=== PATIENT | female | born 1960 | race Caucasian/White ===

== ENCOUNTER → 2018-03-15 | Day surgery (SDC) | payer OTHER ==
[~2018-03-15] MED LIST: BUPIVACAINE HCL 0.5% INJ 30 ML VIAL INJ ONE; CEFAZOLIN SOD 1 GM VIAL ONE; CYMBALTA20 MG PO; DEXAMETHASONE SOD PHOS INJ 4 MG/ML VIAL ONE; FENTANYL CITRATE/PF 100MCG/2 ML INJ ONE; KETOROLAC TROMETHAMINE 30 MG/ML VIAL ONE; LIDOCAINE HCL 2% LOCAL INJ 5 ML SDV VIAL INJ ONE; MIDAZOLAM HCL 2 MG/2 ML VIAL ONE; ONDANSETRON HCL INJ 2 MG/ML VIAL ONE; PROPOFOL IV EMULSION 10 MG/ML 20 ML VIAL ONE; SEVOFLURANE INHAL SOLN 250 ML PEN BTL ONE
--- OUTSIDE RECORDS SUMMARY | 2018-03-15 06:32 | XMS REPORT | Clinical Summary ---
Author Author MARTH[facility] Address Unknown Phone Unavailable Care Team Providers Care Monument Installer Name Role Phone PCP Unavailable Allergies No Known Allergies Current Medications Prescription Sig. Disp. Refills Start End Date Status Date DULoxetine (CYMBALTA) 20 Take 20 mg by mouth Active MG capsule daily. ibuprofen (ADVIL,MOTRIN) Take 200 mg by mouth Active 200 MG tablet every 6 (six) hours as needed for Pain. aspirin 325 MG EC tablet Take 1 tablet (325 mg 30 tablet 0 04/20/20 04/20/20 total) by mouth daily. 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 Social History Tobacco Use Types Packs/Day Years Used Date Never Smoker Alcohol Use Drinks/Week oz/Week Comments Yes 1 Glasses of 0.6 seldom wine Sex Assigned at Date Recorded Not on file Last Filed Vital Signs Not on file Plan of Treatment Not on file Implants Implanted Type Area Librarian Head Device Expiration Model / Identifier Date Serial / Lot Mcpherson Mini Bio Suttak 2.4x8.5 Mcpherson/Art Right: ARTHREX 02/07/2018 [id number] - [id number] hroscopy Ankle F / Implanted: Qty: 2 on 04/20/2016 by / Mark Tavares MD [id number] [facility] May Repr Intrl Brace Mcpherson/Art Right: ARTHREX 02/07/2018 AR-1688-CP Ar-1688-Cp - [id number] hroscopy Ankle / Implanted: Qty: 1 on 04/20/2016 by / Mark Tavares MD [id number] [facility] Ar-[id number] - [id number] Mcpherson/Art Right: Toe ARTHREX AR-[id number] Implanted: Qty: 1 on 04/20/2016 by hroscopy / Mark Tavares MD / [id number] Scr Quick Fix 2x13mm Ar-[id number] - Fracture/F Right: Toe ARTHREX AR- 8930-13 [id number] ixation / Implanted: Qty: 2 on 04/20/2016 by / Mark Tavares MD 0.62 K Wire Right: Toe ARTHREX [id number] / Implanted: Qty: 1 on 04/20/2016 by / Mark Tavares MD Results Not on fileafter 03/14/2017
--- NOTE | 2018-03-15 13:20 | Operative Report ---
DATE OF PROCEDURE: March 15, 2018 TRAUMA MANAGER: Logan Napier PA-C The patient was brought to the operating room for induction of anesthesia. Throughout this case, my PA's assistance was necessary for retraction of soft tissue and positioning of the extremity. This allows for efficient and technically successful execution of the operation and is considered medically necessary. PREOPERATIVE DIAGNOSIS: Left de Quervain's tenosynovitis. POSTOPERATIVE DIAGNOSIS: Left de Quervain's tenosynovitis. PROCEDURE: Release, left de Quervain's tenosynovitis. INDICATIONS: The patient is a 57-year-old lady with intractable left de Quervain's tenosynovitis. She has failed conservative management and would like to proceed with a release of the first dorsal compartment. The risks and benefits have been explained. The recovery has been discussed. She states she understands and wishes to proceed. DESCRIPTION OF PROCEDURE: The patient was brought into the operating room and placed under general anesthetic. Her left upper extremity was prepped and draped in a sterile manner. A preoperative time out was performed. Extremity was exsanguinated, and a proximal tourniquet was inflated to 250 mmHg. An incision was made over the radial styloid. Care was taken to avoid injury to the superficial branch of the radial nerve. The first dorsal compartment was exposed. This was released. There was indeed noted to be a separate compartment for the extensor pollicis brevis and the abductor pollicis longus. Both were released. The tendons were retracted from the wound. There were no further strictures. The incision was closed with 2 interrupted nylon stitches. She was placed in a sterile bandage and a thumb spica splint. She was extubated and transported to the recovery room in stable condition. There was no blood loss, and all needle and sponge counts were correct. Job#: [id number]
== END | disposition home or self-care (01) ==
LOC: OR 06:30
PROVIDERS: ATTEND Specialist
DX: M65.4 Radial styloid tenosynovitis [de Quervain] (principal); Z01.810 Encounter for preprocedural cardiovascular examination
CPT/HCPCS: 25000; 93005; J0690; J1100; J1885; J2001; J2250; J2405

== ENCOUNTER 2019-01-26 10:46 | Observation (INO) | payer OTHER ==
[~2019-01-26] VITALS: Ht 162.6 cm; Wt 64.4 kg
[~2019-01-26 10:46] MED LIST changes: -BUPIVACAINE HCL 0.5% INJ 30 ML VIAL INJ ONE; -CEFAZOLIN SOD 1 GM VIAL ONE; -DEXAMETHASONE SOD PHOS INJ 4 MG/ML VIAL ONE; -FENTANYL CITRATE/PF 100MCG/2 ML INJ ONE; -KETOROLAC TROMETHAMINE 30 MG/ML VIAL ONE; -LIDOCAINE HCL 2% LOCAL INJ 5 ML SDV VIAL INJ ONE; -MIDAZOLAM HCL 2 MG/2 ML VIAL ONE; -ONDANSETRON HCL INJ 2 MG/ML VIAL ONE; -PROPOFOL IV EMULSION 10 MG/ML 20 ML VIAL ONE; -SEVOFLURANE INHAL SOLN 250 ML PEN BTL ONE
--- OUTSIDE RECORDS SUMMARY | 2019-01-26 10:50 | XMS REPORT | Summary of Care ---
Author Author [facility] Organization [facility] Address Unknown Phone Unavailable Encounter HQ Carlos_maikel(FIN) [id number] Date(s): 09/07/17 - 09/07/17 [facility] [address] [place] [address]- Discharge Disposition: Home or Self Care Attending Physician: Rafa Mack MD Referring Physician: Rafa Mack MD Vital Signs No data available for this section Problem List Condition Effective Dates Status Health Status Informant Sebaceous cyst of 10/02/14 Active skin of breast1, 2 1Data migrated from [employer] on 03/12/15. 2Data migrated from [employer] on 03/12/15. Allergies, Adverse Reactions, Alerts Substance Reaction Severity Status NKDA Active Medications No data available for this section Results No data available for this section Immunizations No data available for this section Procedures Procedure Date Related Diagnosis Body Site Carpal tunnel release section1 1x2 Social History Social History Type Response Alcohol Current, Type Wine. Previous treatment: None. Smoking Status Never smoker; Exposure to Tobacco Smoke None; Cigarette Smoking Last 365 Days No; Reg Smoking Cessation Counseling No Assessment and Plan No data available for this section
--- OUTSIDE RECORDS SUMMARY | 2019-01-26 10:50 | XMS REPORT | Encounter Summary ---
Author Organization Unknown Address [address] [place] [address] Phone [phone] Care Team Providers Care Contour Stitcher Name Role Phone Murray Campbell DO 3 [phone] Reason for Visit Medical Complaint Instructions 1. Upper respiratory infection upper respiratory infection (cold): care instructions azithromycin 250 mg tablet methylprednisolone 4 mg tablets in a dose pack 2. Influenza-like symptoms rapid flu (A+B) 3. Pain in throat rapid strep group A, throat sore throat: care instructions 4. Ear pressure sensation Discussion Note Pt is in NAD; Verbalizes understanding of all instructions with no questions at this time. Plan of Care Patient Instructions Stop Sudafed. Take fluticasone over the counter as needed for nasal and ear congestion. Terril one spray in each nostril twice a day. Take a warm, steamy shower, blow your nose thereafter, and spray in each nostril. Tilt your head up for about 10 seconds and breath through your mouth. Do not sniff or snort the medication in or else the medication will go to your throat and not be absorbed appropriately. Take over the counter Xyzal for allergy like symptoms like runny nose, sneezing and watery eyes. Take steroid taper as directed and with food to avoid heartburn. If no improvement of symptoms in 3-4 days, start antobiotics as directed. Take medications as prescribed and follow up with a PCP or ENT within this if symptoms worsen as discussed. Reminders Provider Appointments None recorded. Lab Rapid Strep Group a, Throat 12/17/2017 [facility] Rapid Flu (A+B) 12/17/2017 [facility] Referral None recorded. Procedures None recorded. Surgeries None recorded. Imaging None recorded. Medications Name Start Date azithromycin 250 mg tablet TAKE 2 TABLETS (500 MG) BY ORAL ROUTE ONCE DAILY FOR 1 DAY THEN 1 TABLET (250 MG) BY ORAL ROUTE ONCE DAILY FOR 4 DAYS Boostrix Tdap 2.5 Lf unit-8 mcg-5 Lf/0.5 mL intramuscular syringe ADM 0.5ML IM UTD duloxetine 20 mg capsule,delayed release TK ONE C PO D Fluarix Quad [id number] (PF) 60 mcg (15 mcg x 4)/0.5 mL IM syringe ADM 0.5ML IM UTD methylprednisolone 4 mg tablets in a dose pack Take PO as directed Take with food. pantoprazole 40 mg tablet,delayed release TK 1 T PO QD Medications Administered None recorded. Vitals Height Weight BMI Blood Pressure 5 ft 4 in 130 lbs 22.3 kg/m2 115/72 mm[Hg] Lab Results Date Name Specimen Result Interpretation Description Value Range Status Address Rapid Flu (A+B) Influenza a negative [facility]: [address] [place] [address] Influenza B negative [facility]: [address] [place] [address] Rapid Strep Group a, Throat Result negative [facility]: [address] [place] [address] Swab Location Left and Right tonsillar pillars [facility]: [address] [place] [address] Allergies Code Code System Name Reaction Severity Status Onset NKDA Problems Name Status Onset Date Source Pain in Throat Active 12/17/2017 Upper Respiratory Infection Active 12/17/2017 Ear Pressure Sensation Active 12/17/2017 Menopausal Flushing Active Heartburn Active Procedures Date Name Performed by 08/11/2017 Cholecystectomy Information not available Delivery Information not available Vaccine List Vaccine Type influenza, seasonal, injectable 07/11/2011 07/11/2015 influenza, unspecified formulation 08/16/2017 Tdap 05/17/2017 Social History Smoking Status Never Smoker Past Encounters 12/17/2017 Upper Respiratory Infection; Influenza-like Symptoms; Pain in Throat; Ear Pressure Sensation Jocelyne Isaac, [facility]-C: [address] [place] [address], Ph. History of Present Illness Throat-Oral Complaint Reported By: Patient HPI: Location: throat. Quality: sore throat, congested. Severity: moderate, pain level 5/10. Duration: 3-4 days. Onset/Timing: sudden. Context: no sick contacts, no foreign travel, non-smoker; Pt reports she will leave the country and will be gone for almost a week. Modifying factors: OTC medication. Associated Symptoms: no fever, no headache, no body aches, no sputum production, no shortness of breath, no wheezing, no change in number of pillows needed to sleep at night, no sweats, no significant weight gain, no significant weight loss, no morning cough, no vomiting, no diarrhea, no rash, no nausea, fever, sore throat; sinus pressure, nasal congestion, rhinorrhea, post nasal drip, and right ear pressure Torlmgi-Pmqww-Lna Reported By: Patient HPI: Quality: symptoms worse during the day. Duration: 3-4 days. Severity: subjective temperature. Context: no ill contacts, no tick/insect bites, no recent travel, no new medications; Pt reports she will leave the country and will be gone for almost a week. Associated Symptoms: no fever/chills, no headache, no muscle aches, no rash, no lethargy, cough, nasal passage blockage (stuffiness), nasal discharge; sinus pressure, post nasal drip, sore throat, right ear pressure, and low grade fever. Modifying Factors OTC medication Ear Complaint Reported By: Patient HPI: Location: right. Quality: ears feel full/plugged, muffled. Severity: continuous, moderate. Duration: constant; x 3-4 days. Onset/Timing: better, still present, gradual. Context: no sick contacts, no recent swimming/water in ear, no exposure to second hand smoke, no head trauma, not grinding teeth, no recent air travel; Pt reports she will leave the country and will be gone for almost a week. Modifying factors: does not hurt to lie on, or pull on ear, does not hurt to chew, nothing gives relief. Associated Symptoms: no discharge from the ears, no hearing loss, no popping noise in the ears, no ringing in the ears, no chills, no earache, no dizziness, no vertigo, no headache, no muscle aches, nose/sinus problems, fever; rhinorrhea, post nasal drip, sore throat, and right ear pressure Note:
Review of Systems:ROS as noted in the HPI Review of Systems Basic Reported By: Patient Physical Exam Adult Basic, Adult Female Complete Reported By: Patient Constitutional: General Appearance: healthy-appearing, well-nourished, well-developed. Level of Distress: NAD. Ambulation: ambulating normally Psychiatric: Mental Status: active and alert. Orientation: to time, to place, to person Eyes: Lids and Conjunctivae: non-injected, no discharge, no pallor. Pupils: PERRLA Xaq-Cuof-Zcwtz-Throat: Ears: no lesions on external ear, no outer ear tenderness, EACs clear, TMs clear. Hearing: no hearing loss. Nose: no lesions on external nose, nares patent, no septal deviation, nasal passages clear, no sinus tenderness, nasal discharge--rhinorrhea, post nasal drip; B/L NTs pink and slightly edematous. Lips, Teeth, and Gums: no mouth or lip ulcers, no bleeding gums, normal dentition. Oropharynx: moist mucous membranes, no erythema, no exudates, tonsils not enlarged Neck: Neck: supple. Lymph Nodes: no cervical LAD Lungs: Respiratory effort: no dyspnea, no tachypnea, no use of accessory muscles, no intercostal retractions. Auscultation: breath sounds normal Cardiovascular: Heart Auscultation: RRR, no murmurs Neurologic: Gait and Station: normal gait, normal station. Cranial Nerves: grossly intact
--- OUTSIDE RECORDS SUMMARY | 2019-01-26 10:50 | XMS REPORT | Encounter Summary ---
Author Organization Unknown Address [address] [place] [address] Phone [phone] Care Team Providers Care Paper Final Inspector Name Role Phone Murray Campbell DO 3 [phone] Reason for Visit Medical Complaint Instructions 1. Acute sinusitis sinusitis: care instructions Augmentin 875 mg-125 mg tablet Bromfed DM 2 mg-30 mg-10 mg/5 mL syrup Discussion Note Take an zrao-ayx-rvartsc pain medicine, such as acetaminophen (Tylenol), ibuprofen (Advil, Motrin), or naproxen (Aleve). Read and follow all instructions on the label. If the doctor prescribed antibiotics, take them as directed. Do not stop taking them just because you feel better. You need to take the full course of antibiotics. Be careful when taking wrtj-azs-fzxxabp cold or flu medicines and Tylenol at the same time. Plan of Care Reminders Provider Appointments None recorded. Lab None recorded. Referral None recorded. Procedures None recorded. Surgeries None recorded. Imaging None recorded. Medications Name Start Date Augmentin 875 mg-125 mg tablet Take 1 tablet every 12 hours by oral route with meals for 10 days. Bromfed DM 2 mg-30 mg-10 mg/5 mL syrup Take 10 mL every 6 hours by oral route as needed for cough. duloxetine 20 mg capsule,delayed release TK ONE C PO D Medications Administered None recorded. Vitals Height Weight BMI Blood Pressure 5 ft 130 lbs 25.4 kg/m2 112/68 mm[Hg] Lab Results None recorded. Allergies Code Code System Name Reaction Severity [...] History Smoking Status Never Smoker Past Encounters 04/09/2018 Acute Sinusitis Tahira Payne PA-C: [address] [place] [address], Ph. History of Present Illness Hjatx-Xcexsxsnvg-Jwfljtm Reported By: Patient HPI: Location: head/sinuses, throat. Quality: sore throat, nasal/sinus congestion, dry cough. Duration: 7days. Severity: mild. Onset/Timing: gradual. Context: sick contact. Modifying factors: OTC medication. Associated Symptoms: no sputum production, no shortness of breath, no wheezing, no change in number of pillows needed to sleep at night, no sweats, no significant weight gain, no significant weight loss, no vomiting, no diarrhea, no rash, no nausea, no fever, no muscle aches, morning cough, sore throat, headache Review of Systems Basic Reported By: Patient Constitutional: Constitutional: no fever Eyes: Eyes: no eye complaints Xjjz-Phkd-Ayrgd-Throat: Ears: ear pain. Nose: nose/sinus problems. Mouth/Throat: no bleeding gums, no mouth complaints, no teeth problems, sore throat Cardiovascular: Cardiovascular: no chest pain, no shortness of breath, no known heart murmur Respiratory: Respiratory: no wheezing, no shortness of breath, cough Gastrointestinal: Gastrointestinal: no abdominal pain, no vomiting / diarrhea Genitourinary: Genitourinary: no urinary complaints, no discharge Musculoskeletal: Musculoskeletal: no muscle weakness, no arthralgias/joint pain, no back pain, muscle aches Skin: Skin: no abnormal / changing mole, no jaundice, no rashes Neurologic: Neurologic: no loss of consciousness, no weakness, no numbness, no seizures, no dizziness, no headaches, headache Physical Exam Adult Basic Reported By: Patient Constitutional: General Appearance: healthy-appearing, well-nourished, well-developed. Level of Distress: NAD. Ambulation: ambulating normally Psychiatric: Mental Status: active and alert. Orientation: to time, to place, to person Eyes: Lids and Conjunctivae: non-injected, no discharge, no pallor. Pupils: PERRLA. EOM: EOMI. Sclerae: non-icteric Kto-Xyge-Dytbm-Throat: Ears: no lesions on external ear, no outer ear tenderness, EACs clear, TM opacified, middle ear fluid. Hearing: no hearing loss. Nose: no lesions on external nose, nares patent, no septal deviation, nasal passages clear, sinus tenderness, nasal discharge--purulent, nasal discharge--rhinorrhea, post nasal drip. Lips, Teeth, and Gums: no mouth or lip ulcers, no bleeding gums, normal dentition. Oropharynx: moist mucous membranes, no exudates, tonsils not enlarged, erythema Neck: Neck: supple, trachea midline, no masses, FROM. Lymph Nodes: no cervical LAD, no supraclavicular LAD Lungs: Respiratory effort: no dyspnea, no tachypnea, no use of accessory muscles, no intercostal retractions. Percussion: no dullness, flatness, or hyperresonance. Auscultation: breath sounds normal Cardiovascular: Heart Auscultation: RRR, no murmurs
--- OUTSIDE RECORDS SUMMARY | 2019-01-26 10:50 | XMS REPORT | Summary of Care ---
Author Author [facility] Organization [facility] General [facility] Address Unknown Phone Unavailable Encounter HQ Sudhakarr_maikel(FIN) [id number] Date(s): 09/14/17 - 09/14/17 [facility] General [facility] [address] [facility] [address] [place] [address]- [phone] Discharge Disposition: Home or Self Care Attending Physician: Ezekiel Arroyo MD Referring Physician: Akhil Shrestha MD Vital Signs Most recent to 1 oldest [Reference Range]: Height 152.4 cm (09/14/17 3:03 PM) Temperature Oral 97.9 DegF [96.4-99.1 DegF] (09/14/17 3:03 PM) Blood Pressure 129/79 mmHg [90-140/60-90 mmHg] (09/14/17 3:03 PM) Peripheral Pulse 74 bpm Rate [60-100 bpm] (09/14/17 3:03 PM) Weight 64.801 kg (09/14/17 3:03 PM) Body Mass Index 27.9 m2 (09/14/17 3:03 PM) Problem List Condition Effective Dates Status Health Status Informant Sebaceous cyst of 10/02/14 Active skin of breast1, 2 1Data migrated from [employer] on 03/12/15. 2Data migrated from [employer] on 03/12/15. Allergies, Adverse Reactions, Alerts Substance Reaction Severity Status NKDA Active Medications No Known Medications Results No data available for this section Immunizations No data available for this section Procedures Procedure Date Related Diagnosis Body Site Laparoscopic cholecystectomy 08/27/17 Carpal tunnel release section1 1x2 Social History Social History Type Response Alcohol Current, Type Wine. Previous treatment: None. Smoking Status Never smoker; Exposure to Tobacco Smoke None; Cigarette Smoking Last 365 Days No; Reg Smoking Cessation Counseling No Assessment and Plan No data available for this section
--- OUTSIDE RECORDS SUMMARY | 2019-01-26 10:50 | XMS REPORT | Summary of Care ---
Author Organization Unknown Address Unknown Phone Unavailable Encounter HQ Encntr_alimiguel(LINN) [id number] Date(s): 04/27/14 - 04/27/14 [facility] [address] Discharge Disposition: Home Physician Attending: Rafa Mack MD Physician_Referring: Rafa Mack MD Reason for Visit SCREENING Problem List No data available for this section Allergies, Adverse Reactions, Alerts Substance Reaction Severity Status NKDA Active Medications No data available for this section Medications Administered During Your Visit No data available for this section Immunizations No data available for this section Social History Social History Type Response Alcohol Use: Current, Type: Wine, Previous treatment: None Smoking Status Never smoker, Exposure to Tobacco Smoke None, Cigarette Smoking Last 365 Days No, Reg Smoking Cessation Counseling No
--- OUTSIDE RECORDS SUMMARY | 2019-01-26 10:50 | XMS REPORT | Summary of Care ---
Author Author [facility] Organization [facility] Address Unknown Phone Unavailable Encounter MONICA Brooks(LINN) [id number] Date(s): 07/10/16 - 07/10/16 [facility] [address] [place] [address]- [phone] Discharge Disposition: Home or Self Care Attending Physician: Rafa Mack MD Referring Physician: Rafa Mack MD Vital Signs No data available for this section Problem List Condition Effective Dates Status Health Status Informant Sebaceous cyst of 10/02/14 Active skin of breast1, 2 1Data migrated from [employer] on 03/12/15. 2Data migrated from [employer] on 03/12/15. Allergies, Adverse Reactions, Alerts Substance [...]
--- OUTSIDE RECORDS SUMMARY | 2019-01-26 10:50 | XMS REPORT | Summary of Care ---
Author Organization Unknown Address Unknown Phone Unavailable Encounter HQ Todd(LINN) [id number] Date(s): 04/10/14 - 04/10/14 [facility] [address] [address] Discharge Disposition: Home Physician Attending: Rafa Mack MD Physician_Referring: Rafa Mack MD Reason for Visit 627.1 Vital Signs 1 2 3 Most recent to oldest [Reference Range]: 152.4 cm (04/09/14 11:32 AM) Height 98.1 DegF (04/10/14 11:14 AM) 97.6 DegF (04/09/14 11:50 AM) Temperature Oral [96.4-99.1 DegF] 130 mmHg (04/10/14 3:15 PM) 124 mmHg (04/10/14 3:00 PM) 121 mmHg (04/10/14 2:45 PM) Systolic Blood Pressure [90-140 mmHg] 76 mmHg (04/10/14 3:15 PM) 79 mmHg (04/10/14 3:00 PM) 97 mmHg *HI* (04/10/14 2:45 PM) Diastolic Blood Pressure [60-90 mmHg] 18 BRMIN (04/10/14 2:15 PM) 17 BRMIN (04/10/14 2:00 PM) 13 BRMIN *LOW* (04/10/14 1:45 PM) Respiratory Rate [14-20 BRMIN] 63 bpm (04/10/14 11:14 AM) 65 bpm (04/09/14 11:50 AM) Peripheral Pulse Rate [60-100 bpm] 57.727 kg (04/09/14 11:32 AM) Weight 24.85 m2 (04/09/14 11:32 AM) Body Mass Index Problem List No data available for this section Allergies, Adverse Reactions, Alerts Substance Reaction Severity Status NKDA Active Medications acetaminophen-hydrocodone 325 mg-5 mg oral tablet 1 tab, Route: PO, Drug Form: TAB, Dosing Weight 57.727, kg, Q4H, PRN Pain Score 1-3, Start date: 04/10/14 13:33:00, Duration: 30 day, Stop date: 05/10/14 13:32: 00 Notes: (Same as: [place] 325/5) Do not exceed 4gm/day of acetaminophen. Start Date: 04/10/14 Stop Date: 04/11/14 Status: Discontinued acetaminophen-hydrocodone 325 mg-5 mg oral tablet 2 tab, Route: PO, Drug Form: TAB, Dosing Weight 57.727, kg, Q4H, PRN Pain Score 4-6, Start date: 04/10/14 13:33:00, Duration: 30 day, Stop date: 05/10/14 13:32: 00 Notes: (Same as: [place] 325/5) Do not exceed 4gm/day of acetaminophen. Start Date: 04/10/14 Stop Date: 04/11/14 Status: Discontinued Advil 200 mg, PO, PRN, 0 Refill(s) Start Date: 04/09/14 Status: Ordered Effexor XR 37.5 mg oral capsule, extended release 37.5 mg=1 cap, PO, Daily, # 30 cap, 0 Refill(s) Start Date: 04/09/14 Status: Ordered Lactated Ringers Injection IV 1,000 mL 1,000 mL, Rate: 25 ml/hr, Infuse over: 40 hr, Route: IV, Dosing Weight 57.727 kg , Total Volume: 1,000, Start date: 04/10/14 10:52:00, Duration: 30 day, Stop wilma e: 05/10/14 10:51:00 Start Date: 04/10/14 Stop Date: 04/11/14 Status: Discontinued morphine Sulfate 2 mg, 1 mL, Route: IVP, Drug form: INJ, Q3H, Dosing Weight 57.727, kg, PRN Pain Score 1-3, Start date: 04/10/14 13:33:00, Duration: 30 day, Stop date: 05/10/14 13:32:00 Notes: (Same as:MORPhine Sulfate) Start Date: 04/10/14 Stop Date: 04/11/14 Status: Discontinued morphine Sulfate 6 mg, 3 mL, Route: IVP, Drug form: INJ, Q3H, Dosing Weight 57.727, kg, PRN Pain Score 7-10, Start date: 04/10/14 13:33:00, Duration: 30 day, Stop date: 05/10/14 13:32:00 Notes: (Same as:MORPhine Sulfate) Start Date: 04/10/14 Stop Date: 04/11/14 Status: Discontinued morphine Sulfate 4 mg, 2 mL, Route: IVP, Drug form: INJ, Q3H, Dosing Weight 57.727, kg, PRN Pain Score 4-6, Start date: 04/10/14 13:33:00, Duration: 30 day, Stop date: 05/10/14 13:32:00 Notes: (Same as:MORPhine Sulfate) Start Date: 04/10/14 Stop Date: 04/11/14 Status: Discontinued Results ENDOCRINOLOGY Most recent to 1 oldest [Reference Range]: S Preg [Negative] Negative *NA* (04/09/14 12:10 PM) Medications Administered During Your Visit No data available for this section Immunizations No data available for this section Procedures Procedure Type Body Site Date of Procedure Related Diagnosis Carpal tunnel release section1 1x2 Social History Social History Type Response Alcohol Use: Current, Type: Wine, Previous treatment: None Smoking Status Never smoker, Exposure to Tobacco Smoke None, Cigarette Smoking Last 365 Days No, Reg Smoking Cessation Counseling No
--- OUTSIDE RECORDS SUMMARY | 2019-01-26 10:50 | XMS REPORT | Clinical Summary ---
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 Active ibuprofen (ADVIL,MOTRIN) Take 200 mg 0 200 MG tablet by mouth every 6 (six) hours as needed for Pain. 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 Last Filed Vital Signs Not on file Plan of Treatment Not on file Implants Device Identifier Shelf Expiration Date Model / Serial / Lot Implanted Type Area Manufactur er 02/07/2018 [id number] / / [id number] [place] Mini Bio Suttak 2.4x8.5 [place] Right: Ankle ARTHREX [id number] - [id number] hroscopy Implanted: Qty: 2 on 04/20/2016 by Mark Tavares MD 02/07/2018 [id number] / / [id number] Kt Ligmnt May Repr Intrl Brace [place] Right: Ankle ARTHREX Ar-1688-Cp - [id number] hroscopy Implanted: Qty: 1 on 04/20/2016 by Mark Tavares MD 01/08/2021 [id number] / / [id number] Kt Cpr Viper Ar-[id number] - [id number] [place] Right: Toe ARTHREX Implanted: Qty: 1 on 04/20/2016 by Mark Venegas MD [id number] / / Scr Quick Fix 2x13mm Ar-8930-13 - Fracture/F Right: Toe ARTHREX [id number] ixation Implanted: Qty: 2 on 04/20/2016 by Mark Tavares MD [id number] / / 0.62 K Wire Right: Toe ARTHREX Implanted: Qty: 1 on 04/20/2016 by Mark Tavares MD Results Not on fileafter 01/25/2018 Insurance Payer Benefit Subscriber ID Type Phone Address Plan / Group AETNA - MGD CARE AETNA HMO xxxxxxxxxx HMO/POS POS QPOS Advance Directives For more information, please contact: [facility] [address] [place] [address] Date Inactivated Comments Code Status Date Activated 04/20/2016 2:19 PM Full Code 04/20/2016 6:42 AM This code status was determined by: Patient
--- OUTSIDE RECORDS SUMMARY | 2019-01-26 10:50 | XMS REPORT | Summary of Care ---
Author Author [facility] Organization [facility] Address Unknown Phone Unavailable Encounter MONICA Brooks(LINN) [id number] Date(s): 04/30/15 - 04/30/15 [facility] [address] [place] [address]- Discharge Disposition: Home Attending Physician: Rafa Mack MD Referring Physician: [...]
--- OUTSIDE RECORDS SUMMARY | 2019-01-26 10:50 | XMS REPORT | Continuity of Care Document ---
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 Name Role Phone MD Coty, Xavier PP Unavailable Insurance Providers Payer name Policy type / Coverage type Policy ID Covered green party ID Policy Thorne AETNA - CHOICE (POS II) AETNA - CHOICE (POS II) Encounters Encounter Performer Location Date Lab Report Xavier Ansari MD [facility] [place] Oct 03, 2014 Vital Signs Date Description Test Result Oct 02, 2014 height E&M - 8302-2 HEIGHT 60 in Oct 02, 2014 weight E&M - 3141-9 WEIGHT 132 lb Oct 02, 2014 temperature E&M TEMPERATURE 97.5 deg f Oct 02, 2014 pulse rate E&M - 8867-4 PULSE RATE 65 /min Oct 02, 2014 blood pressure, systolic - 8480-6 BP SYSTOLIC 110 mm Hg Oct 02, 2014 blood pressure, diastolic - 8462-4 BP DIASTOLIC 71 mm Hg
--- OUTSIDE RECORDS SUMMARY | 2019-01-26 10:50 | XMS REPORT | Encounter Summary ---
Author Organization Unknown Address [address] [place] [id number] Phone [phone] Reason for Visit Medical Complaint; fever,body aches, sore throat,laryngitis,headache,coughx 3 days Instructions 1. Influenza with non-respiratory manifestation rapid flu (A+B) rapid strep group A, throat Tamiflu 75 mg capsule influenza (flu): care instructions Bromfed DM 2 mg-30 mg-10 mg/5 mL syrup Discussion Note: None recorded. Plan of Care Patient Instructions Please drink plenty of fluids, rest, good hand washing, cover your mouth while coughing and sneezing. Take ibuprofen or tylenol every 6 hours as needed for fever and aches. Follow up with PCP or seek care if symptoms doesn't getworse or no improvement in 1 week. Reminders Provider Appointments None recorded. Lab Rapid Flu (A+B) 02/03/2016 [facility] Rapid Strep Group a, Throat 02/03/2016 [facility] Referral None recorded. Procedures None recorded. Surgeries None recorded. Imaging None recorded. Medications Name Start Date Bromfed DM 2 mg-30 mg-10 mg/5 mL syrup Take 10 mL every 6 hours by oral route as needed for cough. Tamiflu 75 mg capsule Take 1 capsule(s) twice a day by oral route for 5 days. venlafaxine ER 37.5 mg capsule,extended release 24 hr Medications Administered None recorded. Vitals Height Weight BMI Blood Pressure 5 ft 126 lbs 24.6 (1) 140/90 (2) 134/78 Lab Results Date Name Result Description Value Range Status Rapid Flu (A+B) Influenza a negative Influenza B positive Rapid Strep Group a, Throat Result negative Swab Location Left and Right tonsillar pillars Allergies Name Reaction Severity Onset NKDA Problems Name Status Onset Date Source Acute Sinusitis Active Encounter Acute Upper Respiratory Infection Active Encounter Allergic Rhinitis Active Encounter Influenza with Non-respiratory Manifestation Active Encounter Procedures Date Name Performed by Delivery Information not available Vaccine List Vaccine Type influenza, seasonal, injectable 07/10/2011 07/10/2015 Social History Smoking Status Never Smoker Past Encounters 02/03/2016 Influenza with Non-respiratory Manifestation Jennie Nevarez, [facility]: [address] [place] [address], Ph. History of Present Illness [id number] Reported By: Patient HPI: Location: head/sinuses, throat. Quality: sore throat, dry cough. Duration: 3days. Severity: moderate. Onset/Timing: gradual. Context: no foreign travel, non-smoker, sick contact. Modifying factors: OTC medication. Associated Symptoms: no sputum production, no shortness of breath, no wheezing, no change in number of pillows needed to sleep at night, no sweats, no significant weight gain, no significant weight loss, no morning cough, no vomiting, no diarrhea, no rash, no nausea, fatigue, sore throat Review of Systems Basic Reported By: Patient Constitutional: Constitutional: fever Eyes: Eyes: no eye complaints Egjm-Lsli-Fpncc-Throat: Ears: no ear complaints. Nose: nose/sinus problems. Mouth/Throat: no bleeding gums, no mouth complaints, no teeth problems, sore throat Cardiovascular: Cardiovascular: no chest pain, no shortness of breath, no known heart murmur Respiratory: Respiratory: no wheezing, no shortness of breath, cough Gastrointestinal: Gastrointestinal: no abdominal pain, no vomiting / diarrhea Genitourinary: Genitourinary: no urinary complaints, no discharge Musculoskeletal: Musculoskeletal: no arthralgias/joint pain, no back pain, muscle aches Skin: Skin: no abnormal / changing mole, no jaundice, no rashes Neurologic: Neurologic: no loss of consciousness, no weakness, no numbness, no seizures, no dizziness, no headaches Physical Exam Adult Female Complete, Adult Basic Constitutional: General Appearance: healthy-appearing, well-nourished, well-developed. Level of Distress: NAD. Ambulation: ambulating normally Psychiatric: Mental Status: active and alert. Orientation: to time, to place, to person Eyes: Lids and Conjunctivae: non-injected, no discharge, no pallor. Pupils: PERRLA. EOM: EOMI. Lens: clear. Sclerae: non-icteric Hum-Dnmo-Ljqgd-Throat: Ears: no lesions on external ear, no outer ear tenderness, EACs clear, TMs clear. Hearing: no hearing loss. Nose: no lesions on external nose, nares patent, no septal deviation, nasal passages clear, no sinus tenderness, nasal discharge--rhinorrhea, post nasal drip. Lips, Teeth, and Gums: no mouth or lip ulcers, no bleeding gums, normal dentition. Oropharynx: moist mucous membranes, no exudates, tonsils not enlarged, erythema Neck: Neck: supple. Lymph Nodes: no cervical LAD, no supraclavicular LAD Lungs: Respiratory effort: no dyspnea, no tachypnea. Auscultation: breath sounds normal Cardiovascular: Heart Auscultation: RRR, no murmurs Musculoskeletal:: Motor Strength and Tone: normal motor strength, normal tone Neurologic: Gait and Station: normal gait Skin: Inspection and palpation: no rash, no lesions
--- OUTSIDE RECORDS SUMMARY | 2019-01-26 10:50 | XMS REPORT | Continuity of Care Document ---
Author Author [facility] Address Unknown Phone Unavailable Problems Problem Status Onset Date Classification Date Reported Comments Source ONLINE SCHEDLING Active 10/10/2018 [facility] Acute sinusitis 04/09/2018 Diagnosis 04/09/2018 [facility] Influenza-like symptoms 12/17/2017 Diagnosis 12/17/2017 [facility] Ear pressure sensation 12/17/2017 Diagnosis 12/17/2017 [facility] Pain in throat 12/17/2017 Diagnosis 12/17/2017 [facility] Upper respiratory infection 12/17/2017 Diagnosis 12/17/2017 [facility] Pain in Throat 12/17/2017 Problem 04/09/2018 [facility] Upper Respiratory Infection 12/17/2017 Problem 04/09/2018 [facility] Ear Pressure Sensation 12/17/2017 Problem 04/09/2018 [facility] Z12.31 - ENCNTR SCREEN MAMMOGRAM FOR MA Active 08/02/2017 [facility] [place] SCREENING Active 08/02/2017 [facility] ROUTINE Active 06/09/2016 [facility] Influenza with non-respiratory manifestation 02/03/2016 Diagnosis 02/03/2016 [facility] Sebaceous cyst of skin of breast<sup>1, 2</sup> Active 10/02/2014 Problem 09/17/2017 Data migrated from [employer] on 03/12/15. 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 04/05/2014 [facility] SCREENINGN Active 03/22/2013 [facility] Menopausal Flushing Problem 04/09/2018 [facility] Heartburn Problem 04/09/2018 [facility] Acute Sinusitis Problem 02/03/2016 [facility] Acute Upper Respiratory Infection Problem 02/03/2016 [facility] Allergic Rhinitis Problem 02/03/2016 [facility] Influenza with Non-respiratory Manifestation Problem 02/03/2016 [facility] Medications Medication Details Route Status Patient Instructions Ordering Provider Order Date Source Acetaminophen 325 MG / Hydrocodone Bitartrate 5 MG Oral Tablet 1 tab, Route: PO, Drug Form: TAB, Dosing Weight 57.727, kg, Q4H, PRN Pain Score 1-3, Start date: 04/10/14 13:33:00, Duration: 30 day, Stop date: 05/10/14 13:32:00Notes: (Same as: [place] 325/5) Do not exceed 4gm/day of acetaminophen. No Longer Active 04/10/2014 [facility] Morphine 2 mg, 1 mL, Route: IVP, Drug form: INJ, Q3H, Dosing Weight 57.727, kg, PRN Pain Score 1-3, Start date: 04/10/14 13:33:00, Duration: 30 day, Stop date: 05/10/14 13:32:00Notes: (Same as:[facility]OR[facility]ine Sulfate) No Longer Active 04/10/2014 [facility] Calcium Chloride 0.0014 MEQ/ML / Potassium Chloride 0.004 MEQ/ML / Sodium Chloride 0.103 MEQ/ML / Sodium Lactate 0.028 MEQ/ML Injectable Solution 1,000 mL, Rate: 25 ml/hr, Infuse over: 40 hr, Route: IV, Dosing Weight 57.727 kg, Total Volume: 1,000, Start date: 04/10/14 10:52:00, Duration: 30 day, Stop date: 05/10/14 10:51:00 No Longer Active 04/10/2014 [facility] 24 HR venlafaxine 37.5 MG Extended Release Capsule [Effexor] 37.5 mg=1 cap, PO, Daily, # 30 cap, 0 Refill(s) Active 04/09/2014 [facility] Advil 200 mg, PO, PRN, 0 Refill(s) Active 04/09/2014 [facility] Amoxicillin 875 MG / Clavulanate 125 MG Oral Tablet [Augmentin] Augmentin 875 mg-125 mg tablet Take 1 tablet every 12 hours by oral route with meals for 10 days. Active [facility] Brompheniramine Maleate 0.4 MG/ML / Dextromethorphan Hydrobromide 2 MG/ML / Pseudoephedrine Hydrochloride 6 MG/ML Oral Solution [Bromfed DM] Bromfed DM 2 mg-30 mg-10 mg/5 mL syrup Take 10 mL every 6 hours by oral route as needed for cough. Active [facility] duloxetine 20 MG Delayed Release Oral Capsule duloxetine 20 mg capsule,delayed release TK ONE C PO D Active [facility] Azithromycin 250 MG Oral Tablet azithromycin 250 mg tablet TAKE 2 TABLETS (500 MG) BY ORAL ROUTE ONCE DAILY FOR 1 DAY THEN 1 TABLET (250 MG) BY ORAL ROUTE ONCE DAILY FOR 4 DAYS Active [facility] 0.5 ML Bordetella pertussis filamentous hemagglutinin vaccine, inactivated 0.016 MG/ML / Bordetella pertussis pertactin vaccine, inactivated 0.005 MG/ML / Bordetella pertussis toxoid vaccine, inactivated 0.016 MG/ML / diphtheria toxoid vaccine, inactivated 5 UNT/ML / tetanus toxoid vaccine, inactivated 10 UNT/ML Prefilled Syringe [Boostrix] Boostrix Tdap 2.5 Lf unit-8 mcg-5 Lf/0.5 mL intramuscular syringe ADM 0.5ML IM UTD Active [facility] 0.5 ML influenza A virus A/ (H3N2) antigen 0.03 MG/ML / influenza A virus A/ (H1N1) antigen 0.03 MG/ML / influenza B virus B/[place] antigen 0.03 MG/ML / influenza B virus B/[facility] antigen 0.03 MG/ML Prefilled Syringe [Fluarix Quadrivalent [id number]] Fluarix Quad [id number] (PF) 60 mcg (15 mcg x 4)/0.5 mL IM syringe ADM 0.5ML IM UTD Active [facility] methylprednisolone 4 mg tablets in a dose pack methylprednisolone 4 mg tablets in a dose pack Take PO as directed Take with food. Active [facility] pantoprazole 40 MG Delayed Release Oral Tablet pantoprazole 40 mg tablet,delayed release TK 1 T PO QD Active [facility] Oseltamivir 75 MG Oral Capsule [Tamiflu] Tamiflu 75 mg capsule Take 1 capsule(s) twice a day by oral route for 5 days. Active [facility] 24 HR venlafaxine 37.5 MG Extended Release Oral Capsule venlafaxine ER 37.5 mg capsule,extended release 24 hr Active [facility] Allergies, Adverse Reactions, Alerts Substance Category Reaction Severity Reaction type Status Date Reported Comments Source Immunizations Immunization Date Given Site Status Last Updated Comments Source influenza, unspecified formulation 08/16/2017 completed [facility] Tdap 05/17/2017 completed [facility] influenza, seasonal, injectable 07/11/2015 completed [facility] influenza, seasonal, injectable 07/11/2011 completed [facility] Results Order Name Results Value Reference Range Date Interpretation Comments Source Breast Mammo Scrn ROMAINE w kell incl CAD MA Breast Mammo Scrn ROMAINE w kell incl CAD MA BILATERAL DIGITAL SCREENING MAMMOGRAM 3D/2D WITH CAD: 10/28/2018 CLINICAL: /Routine. Current study was evaluated with a Computer Aided Detection (CAD) system. COMPARISON:Comparison is made to exams dated: 09/07/2017 mammogram, 07/10/2016 mammogram, 04/30/2015 mammogram, and 04/27/2014 mammogram - [facility]. TECHNIQUE: Digital Breast Tomosynthesis was performed and utilized for Interpretation. Sensus Experience Version 1.3 was utilized for computer aided detection. FINDINGS: There are scattered fibroglandular densities in both breasts. No significant masses, calcifications, or other findings are seen in either breast. There has been no significant interval change. IMPRESSION: NEGATIVE RECOMMENDATION:There is no mammographic evidence of malignancy. A 1 year screening mammogram is recommended.(10/29/2019) This exam was interpreted at [id number] for [facility]. Patience Ramirez M.D. ap/penrad:10/28/2018 11:48:22 Racing Mechanic(s): Odessa Chew, [facility] letter sent: BI-RADS 1/2 Mammogram BI-RADS: 1 Negative 10/28/2018 - - Read by: Patience Ramirez MD Dictated Date/time: 10/28/18 11:48 Electronically Signed by: Patience Ramirez MD 10/28/18 11:48 FINAL REPORT [facility] Influenza A negative 12/17/2017 [facility] Influenza B negative 12/17/2017 [facility] RESULT negative 12/17/2017 [facility] SWAB LOCATION Left and Right tonsillar pillars 12/17/2017 [facility] Breast Mammo Scrn ROMAINE w kell incl CAD MA Breast Mammo Scrn ROMAINE w kell incl CAD MA BILATERAL DIGITAL SCREENING MAMMOGRAM 3D/2D WITH CAD: 09/07/2017 CLINICAL: /Routine. Current study was evaluated with a Computer Aided Detection (CAD) system. COMPARISON:Comparison is made to exams dated: 07/10/2016 mammogram, 04/30/2015 mammogram, 04/27/2014 mammogram, 04/25/2013 mammogram, 04/19/2012 mammogram, and 04/16/2011 mammogram - [facility]. TECHNIQUE: Digital Breast Tomosynthesis was performed and utilized for Interpretation. [employer] booka Version 1.3 was utilized for computer aided detection. There are scattered fibroglandular densities in both breasts. FINDINGS: No significant masses, calcifications, or other findings are seen in either breast. There has been no significant interval change. IMPRESSION: NEGATIVE RECOMMENDATION:There is no mammographic evidence of malignancy. A 1 year screening mammogram is recommended.(09/08/2018) This exam was interpreted at [id number] for [facility]. Sierra Martin M.D. jt/penrad:09/08/2017 08:30:12 Racing Mechanic(s): Helene Cannon [facility] letter sent: BI-RADS 1/2 Mammogram BI-RADS: 1 Negative 09/07/2017 - - Read by: Sierra Martin MD Dictated Date/time: 09/08/17 08:30 Electronically Signed by: Sierra Martin MD 09/08/17 08:30 FINAL REPORT [facility] Digital Mammo Screening Romaine MA Digital Mammo Screening Romaine MA - DIGITAL MAMMO SCREENING ROMAINE MA BILATERAL DIGITAL SCREENING MAMMOGRAM WITH CAD: 07/10/2016 CLINICAL: Routine. Current study was evaluated with a Computer Aided Detection (CAD) system. Comparison is made to exams dated: 04/30/2015 mammogram, 04/27/2014 mammogram, 04/25/2013 mammogram, 04/19/2012 mammogram, 04/16/2011 mammogram - [facility] and 04/02/2011 mammogram - [facility]. There are scattered fibroglandular densities in both breasts. No significant masses, calcifications, or other findings are seen in either breast. There has been no significant interval change. IMPRESSION: NEGATIVE There is no mammographic evidence of malignancy. A 1 year screening mammogram is recommended. Patience Ramirez M.D. ap/penrad:07/13/2016 08:33:12 Racing Mechanic: Lou Hector, [facility] This exam was dictated and interpreted by [id number] for [facility]. letter sent: Normal exam Mammogram BI-RADS: 1 Negative 07/10/2016 - - Read by: Patience Ramirez MD Dictated Date/time: 07/13/16 08:33 Electronically Signed by: Patience Ramirez MD 07/13/16 08:33 FINAL REPORT [facility] Streptococcus pyogenes Ag [Presence] in Throat by Immunoassay RESULT negative 02/03/2016 [facility] Streptococcus pyogenes Ag [Presence] in Throat by Immunoassay SWAB LOCATION Left and Right tonsillar pillars 02/03/2016 [facility] Influenza A negative 02/03/2016 [facility] Influenza B positive 02/03/2016 [facility] Digital Mammo Screening Romaine MA Digital Mammo Screening Romaine MA - DIGITAL MAMMO SCREENING ROMAINE MA BILATERAL DIGITAL SCREENING MAMMOGRAM WITH CAD: 04/30/2015 CLINICAL: Routine. Current study was evaluated with a Computer Aided Detection (CAD) system. Comparison is made to exams dated: 04/27/2014 mammogram, 04/25/2013 mammogram, 04/19/2012 mammogram, 04/16/2011 mammogram - [facility], 04/02/2011 mammogram and 04/30/2010 mammogram - [facility]. There are scattered fibroglandular densities in both breasts. No significant masses, calcifications, or other findings are seen in either breast. There has been no significant interval change. IMPRESSION: NEGATIVE The patient mentions a possible lump on her questionnaire but this may reflect her recent right breast benign procedure. Clinical management of the patient's breast symptoms is needed. If a new palpable area of concern exists, diagnostic mammography and sonography is recommended. There is no mammographic evidence of malignancy. A 1 year screening mammogram is recommended. Sierra Martin M.D. jt/:05/01/2015 07:51:20 Racing Mechanic: Lou Hector, [facility] This exam was dictated and interpreted by [id number] for [facility] [place]. letter sent: Normal exam Mammogram BI-RADS: 1 Negative 04/30/2015 - - Read by: Sierra Martin MD Dictated Date/time: 05/01/15 07:51 Electronically Signed by: Sierra Martin MD 05/01/15 07:51 FINAL REPORT [facility] Digital Mammo Screening [place] MA Digital Mammo Screening Romaine MA - DIGITAL MAMMO SCREENING ROMAINE MA BILATERAL DIGITAL SCREENING MAMMOGRAM WITH CAD: 04/27/2014 CLINICAL: Other Screening Mammogram. Current study was evaluated with a Computer Aided Detection (CAD) system. Comparison is made to exams dated: 04/25/2013 mammogram, 04/19/2012 mammogram, 04/16/2011 mammogram - [facility], 04/02/2011 mammogram, 04/30/2010 mammogram and 03/31/2010 mammogram - [facility]. There are scattered fibroglandular densities in both breasts. No significant masses, calcifications, or other findings are seen in either breast. There has been no significant interval change. IMPRESSION: NEGATIVE There is no mammographic evidence of malignancy. A screening mammogram in one year is recommended. Sierra smith/penherminio:04/30/2014 07:46:45 Racing Mechanic: Sana Carter, [facility] This exam was dictated and interpreted by [id number] for [facility] [place]. letter sent: Normal exam Mammogram BI-RADS: 1 Negative 04/27/2014 - - Read by: Sierra Martin MD Dictated Date/time: 04/30/14 07:46 Electronically Signed by: Sierra Martin MD 04/30/14 07:46 FINAL REPORT [facility] ENDOCRINOLOGY S Preg Negative *NA* (04/09/14 12:10 PM) Negative 04/09/2014 [facility] Bone Density Scan Bone Density Scan DEXA BONE DENSITY TECHNIQUE: DEXA bone density evaluation was performed on a Hologic scanner. This represents the patient's initial evaluation at this facility. FINDINGS: Total lumbar spine bone density is 1.253 g/sq cm, 1.9 standard deviations above normal (T score 1.9 ). This represents normal bone density. Total hip bone density is 1.127 g/sq cm, 1.5 standard deviations above normal (T score 1.5 ). Bone mineral density of the left femoral neck is 1.023 g/sq cm, 1.6 standard deviations above normal (T score and 1.6 ). This represents normal bone density. IMPRESSION: Bone mineral density is within normal limits. FOR YOUR INFORMATION: The World Health Organization has established that OSTEOPOROSIS occurs at -2.5 or more standard deviations (SD) below peak bone mass (T-score on the Hologic report). OSTEOPENIA (low bone mass) occurs between -1.0 to -2.5 standard deviations below peak bone mass. SL: 16 04/05/2014 - - Read by: Eliot Kim MD Dictated Date/time: 04/06/14 07:56 Electronically Signed by: Eliot Kim MD 04/06/14 07:57 FINAL REPORT [facility] Pelvis Transvaginal US Pelvis Transvaginal US PROCEDURE: Pelvis Transvaginal US REASON FOR EXAM: See Clinic Indication CLINICAL INFORMATION post menopausal bleeding COMPARISON: None. TRANSABDOMINAL ULTRASOUND: The uterus is anteverted and measures 6.6 x 3.4 x 5.3 cm. The myometrial echotexture is normal. There is no fibroid. The ovaries and endometrial stripe are best characterized on transvaginal images. TRANSVAGINAL ULTRASOUND: Essure wire is noted. The endometrial stripe measures 3 mm in thickness. Both ovaries are normal in size and appearance. Both ovaries are normal in vascularity. The right ovary measures 1 x 0.6 x 0.9 cm. The left ovary measures 1.7 x 0.9 x 1.1 cm. No free fluid is identified in the cul-de-sac. IMPRESSION: 1. Unremarkable pelvic ultrasound with no abnormal thickening of the endometrial stripe. SL: 12 04/05/2014 - - Read by: Melchor Morgan MD Dictated Date/time: 04/05/14 16:57 Electronically Signed by: Melchor Morgan MD 04/05/14 16:58 FINAL REPORT [facility] Digital Mammo Screening Romaine MA Digital Mammo Screening Romaine MA - DIGITAL MAMMO SCREENING ROMAINE MA BILATERAL DIGITAL SCREENING MAMMOGRAM WITH CAD: 04/25/2013 CLINICAL: Routine. Current study was evaluated with a Computer Aided Detection (CAD) system. Comparison is made to exams dated: 04/19/2012 mammogram, 04/16/2011 mammogram - [facility], 04/02/2011 mammogram, 03/31/2010 mammogram and 02/28/2009 mammogram - [facility]. There are scattered fibroglandular elements in both breasts that could obscure a lesion on mammography. Patient complains of intermittent breast pain and/or tenderness. No significant masses, calcifications, or other findings are seen in either breast. There has been no significant interval change. IMPRESSION: BENIGN Clinical management of the patient's breast complaints is recommended. There is no mammographic evidence of malignancy. A screening mammogram in one year is recommended. SUMMARY: SL: 13. Sierra Martin M.D. jt/penrad:04/26/2013 08:01:53 Racing Mechanic: Lou Hector, [facility] letter sent: Normal exam Mammogram BI-RADS: 2 Benign 04/25/2013 - - Read by: Sierra Martin Dictated Date/time: 04/26/13 08:01 Electronically Signed by: Sierra Martin MD 04/26/13 08:01 FINAL REPORT [facility] Vital Signs Vital Sign Value Date Comments Source Diastolic (mm Hg) 68 04/09/2018 [facility] Height 60 04/09/2018 [facility] Systolic (mm Hg) 112 04/09/2018 [facility] Weight 130 04/09/2018 [facility] Diastolic (mm Hg) 72 12/17/2017 [facility] Height 64 12/17/2017 [facility] Systolic (mm Hg) 115 12/17/2017 [facility] Weight 130 12/17/2017 [facility] Systolic (mm Hg) 129 09/14/2017 [facility] Diastolic (mm Hg) 79 09/14/2017 [facility] Temperature Oral (F) 97.9 F 09/14/2017 [facility] Heart Rate 74 09/14/2017 [facility] Weight 64.801 09/14/2017 [facility] BMI Calculated 27.9 09/14/2017 [facility] Height 152.4 cm 09/14/2017 [facility] Diastolic (mm Hg) 78 02/03/2016 [facility] Height 60 02/03/2016 [facility] Systolic (mm Hg) 134 02/03/2016 [facility] Weight 126 02/03/2016 [facility] Height 60 10/02/2014 [facility] Weight 132 10/02/2014 [facility] Temperature Oral (F) 97.5 F 10/02/2014 [facility] Heart Rate 65 10/02/2014 [facility] Systolic (mm Hg) 110 10/02/2014 [facility] Diastolic (mm Hg) 71 10/02/2014 [facility] Diastolic (mm Hg) 76 04/10/2014 [facility] Systolic (mm Hg) 130 04/10/2014 [facility] Diastolic (mm Hg) 79 04/10/2014 [facility] Systolic (mm Hg) 124 04/10/2014 [facility] Systolic (mm Hg) 121 04/10/2014 [facility] Diastolic (mm Hg) 97 04/10/2014 [facility] Respitory Rate 18 04/10/2014 [facility] Respitory Rate 17 04/10/2014 [facility] Respitory Rate 13 04/10/2014 [facility] Temperature Oral (F) 98.1 F 04/10/2014 [facility] Heart Rate 63 04/10/2014 [facility] Heart Rate 65 04/09/2014 [facility] Temperature Oral (F) 97.6 F 04/09/2014 [facility] Weight 57.727 04/09/2014 [facility] BMI Calculated 24.85 04/09/2014 [facility] Height 152.4 cm 04/09/2014 [facility] Encounters Location Location Details Encounter Type Encounter Number Reason For Visit Attending Provider ADM Date DC Date Status Source [facility] Outpatient [id number] SCREENINGN ALCIDES SIERRA 04/25/2013 04/25/2013 Active [facility] Outpatient [id number] Alcides Christine 04/05/2014 04/06/2014 [facility] OBS Day Surgery [id number] Alcides Sierraen 04/10/2014 04/10/2014 [facility] Outpatient [id number] [facility] 04/27/2014 04/28/2014 [facility] Lab Report [id number] Xavier Ansari MD 10/03/2014 10/03/2014 [facility] Outpatient [id number] Alcides Christine 04/30/2015 05/01/2015 [facility] - [id number] Nevarez, BUSINESS ANALYSIS ANALYST: [address] [facility] [address], Ph. [id number] Jennie Nevarez [facility]03[facility] [id number] Alcides Sierraen 07/10/2016 07/11/2016 [facility] Outpatient [id number] JADE BRUNNER 05/21/[address] [facility] Outpatient [id number] JADE BRUNNER 08/27/2017 Active [facility] Outpatient [id number] Alcides Sierraen 09/07/2017 09/08/2017 [facility] Outpatient [id number] JADE BRUNNER 09/14/2017 Active [facility] Outpatient [id number] Akhil Dianen 09/14/2017 09/15/2017 [facility] [place] [facility] - [id number] HAYDER FungP-C: [address] [place] [address], Ph. [id number] Jocelyne Isaac 12/17/2017 [facility] [place] [facility] [id number] Tahira Payne PA-C: [address] [place] [address], Ph. [id number] Tahira Payne 04/09/2018 [facility] Procedures Procedure Code Date Perfomer Comments Source Laparoscopic cholecystectomy [id number] 08/27/2017 [facility] Cholecystectomy 08/11/2017 [facility] Carpal tunnel release [id number] [facility] section<sup>1</sup> [id number] x2 [facility] Carpal tunnel release [id number] [facility] section<sup>1</sup> 51648263 x2 [facility] Delivery 64433 [facility] Delivery [facility]
--- OUTSIDE RECORDS SUMMARY | 2019-01-26 10:50 | XMS REPORT | Summary of Care ---
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
[2019-01-26] MEDS ORDERED: SODIUM CHLORIDE 0.9% 1000ML 1,000 ML IV STA (11:01)
[2019-01-26] MEDS ORDERED: ONDANSETRON HCL INJ 2MG/ML 2ML 2 MG/ML VIAL IV STA (11:01)
[2019-01-26 13:00] LABS: HEMOGLOBIN 14.7 g/dL (12.0-16.0); MEAN CORPUSCULAR HEMOGLOBIN 29.9 pg (28-32); MEAN CORPUSCULAR HGB CONC 32.7 g/dL (31-35); MEAN CORPUSCULAR VOLUME 91.5 fL (81-99); PLATELET COUNT 309 x10e3/uL (140-360); RED BLOOD COUNT 4.92 x10e6/uL (3.6-5.1); RED CELL DISTRIBUTION WIDTH 13.4 % (11.7-14.4)
[2019-01-26 13:01] LABS: BASOPHILS % 0.2 % (0.0-1.0); LYMPHOCYTES # (AUTO) 0.8 (1.0-3.2); LYMPHOCYTES % 4.7 % (18.0-39.1); MONOCYTES # (AUTO) 0.5 (0.2-0.8); MONOCYTES % 2.6 % (4.4-11.3); NEUTROPHILS # (AUTO) 15.7 (2.1-6.9)
[2019-01-26 13:02] LABS: INR 0.91; PARTIAL THROMBOPLASTIN TIME 24.5 seconds (23.8-35.5); PROTHROMBIN TIME 12.7 seconds (11.9-14.5)
[2019-01-26 13:08] LABS: ANION GAP 17.9 mmol/L (8-16); BLOOD UREA NITROGEN 13 mg/dL (7-26); BUN/CREATININE RATIO 17 (6-25); CALCIUM 9.9 mg/dL (8.4-10.2); CARBON DIOXIDE 21 mmol/L (22-29); CHLORIDE 108 mmol/L (98-107); CREATININE, SERUM 0.77 mg/dL (0.57-1.11); EST GLOMERULAR FILTRATION RATE > 60 ML/MIN (60-); GLUCOSE 130 mg/dL (74-118); POTASSIUM 3.9 mmol/L (3.5-5.1); SODIUM 143 mmol/L (136-145)
[2019-01-26 13:09] LABS: ALANINE AMINOTRANSFERASE 19 IU/L (0-55); ALBUMIN 3.9 g/dL (3.5-5.0); ALKALINE PHOSPHATASE 135 IU/L (40-150); AMYLASE 76 U/L (25-125); CREATINE KINASE 80 IU/L (29-168); LIPASE 17 U/L (8-78); MAGNESIUM 2.1 MG/DL (1.3-2.1)
[2019-01-26] MEDS ORDERED: SODIUM CHLORIDE 0.9% 1000ML 1,000 ML ONE (13:29)
[2019-01-26] MEDS ORDERED: ONDANSETRON HCL INJ 2MG/ML 2ML 2 MG/ML VIAL ONE (13:29)
[2019-01-26] MEDS ORDERED: CIPROFLOXACIN 400 MG/D5W 200ML 200 ML IV ONE ×2 (13:33→15:30)
[2019-01-26] MEDS ORDERED: METRONIDAZOLE 500MG/NS 100ML 100 ML IV ONE ×2 (13:33→15:30)
[2019-01-26 13:45] LABS: BILIRUBIN,URINE NEGATIVE (NEGATIVE); CLARITY,URINE SL CLOUDY (CLEAR); COLOR,URINE YELLOW (YELLOW); KETONES,URINE 1+ (NEGATIVE); LEUKOCYTE ESTERASE ,URINE NEGATIVE (NEGATIVE); NITRITE,URINE NEGATIVE (NEGATIVE); PROTEIN,URINE DIPSTICK 1+ (NEGATIVE); URINE UROBILINOGEN 0.2 mg/dL (0.2 - 1)
[2019-01-26 13:55] LABS: AMORPHOUS SEDIMENT,URINE MODERATE (FEW); BACTERIA,URINE MANY /HPF; EPITHELIAL CELLS,URINE MANY /LPF; MUCUS,URINE MODERATE (RARE)
[2019-01-26] MEDS ORDERED: PROMETHAZINE 25MG/ NS 50ML (IV) IV ONE (14:30)
[2019-01-26] MEDS ORDERED: IBUPROFEN 600 MG TAB ONE (14:37)
[2019-01-26] MEDS ORDERED: MORPHINE SULFATE INJ 4 MG/ML INJ 1ML IV NR (14:45)
[2019-01-26] MEDS ORDERED: IBUPROFEN 600 MG TAB PO STA (14:49)
[2019-01-26] MEDS ORDERED: SODIUM CHLORIDE 0.9% 1000ML 1,000 ML IV ONE (15:30)
[2019-01-26] MEDS ORDERED: IOPAMIDOL 370 MG/ML 200 ML INFUS..BTL INJ ONE (15:42)
[2019-01-26] MEDS ORDERED: SODIUM CHLORIDE 0.9% 50ML 50 ML ONE (15:42)
--- NOTE | 2019-01-26 16:25 | Diagnostic Imaging Report ---
EXAMINATION: Head CT HISTORY: Syncope, nausea and vomiting COMPARISON: None. TECHNIQUE: Multidetector axial images were obtained without contrast from the foramen magnum to the vertex . The images were reconstructed using brain and bone algorithms. Thin section brain images were reformatted into coronal and sagittal planes. Image quality: Motion/streaking artifact limits the evaluation of the skull base and posterior cranial fossa. Dose modulation, iterative reconstruction, and/or weight based adjustment of the mA/kV was utilized to reduce the radiation dose to as low as reasonably achievable. FINDINGS: Parenchyma: 1. No abnormal densities. 2. No mass or hemorrhage. No CT evidence of acute territorial vascular insult. Extra-axial spaces:No abnormal density. No extra-axial fluid collections Brain volume: Normal for age. Ventricles: No hydrocephalus or displacement. Arteries: No density suggestive of thrombus. Dural sinuses: No abnormal density. Extra-axial spaces: No abnormal density. Foramen magnum: No mass, Chiari malformation, or basilar invagination. Sella: No obvious mass. Paranasal/mastoid sinuses: Imaged portions unremarkable. Skull/Scalp: No lytic or blastic lesions. No fractures. IMPRESSION: Suboptimal study due to patient's motion, grossly no acute intracranial abnormalities. Signed by: Dr. Kate Victor M.D. on 01/26/2019 4:22 PM
--- NOTE | 2019-01-26 16:27 | Diagnostic Imaging Report ---
EXAMINATION: CT of the abdomen and pelvis with contrast. TECHNIQUE: Helical CT images of the abdomen and pelvis were performed from the lung bases to the lesser trochanters after the intravenous administration of 100 cc of Isovue 300 and the oral administration of Gastrografin. Coronal and sagittal reformatted images were obtained.Dose modulation, iterative reconstruction, and/or weight based adjustment of the mA/kV was utilized to reduce the radiation dose to as low as reasonably achievable. COMPARISON: None. CLINICAL HISTORY:Abdominal pain DISCUSSION: ABDOMEN/PELVIS: LOWER THORAX:Groundglass opacities right lower lobe. HEPATOBILIARY: No focal hepatic lesions. No intra-or extrahepatic biliary ductal dilation. Cholecystectomy. SPLEEN: No splenomegaly. PANCREAS: No focal masses or ductal dilatation. ADRENALS: No adrenal nodules. KIDNEYS/URETERS: No hydronephrosis, stones, or solid mass lesions. PELVIC ORGANS/BLADDER: The bladder is normal. PERITONEUM/RETROPERITONEUM: No free air or fluid. LYMPH NODES: No intra-abdominal, retroperitoneal, pelvic or inguinal lymphadenopathy. VESSELS: The celiac trunk,superior and inferior mesenteric and bilateral renal arteries are patent The portal, superior mesenteric and splenic veins are patent. GI TRACT: No distention or wall thickening. Appendix normal. BONES AND SOFT TISSUE: No bony destructive lesions. No soft tissue abnormalities. IMPRESSION: Right lower lobe mild pneumonia versus aspiration. No acute CT finding within the abdomen. Signed by: Dr. Aaron Crum M.D. on 01/26/2019 4:24 PM
--- NOTE | 2019-01-26 17:22 | Diagnostic Imaging Report ---
Examination: Single AP view of the chest. COMPARISON: None. INDICATION: Vomiting, diarrhea DISCUSSION: Lines/tubes: None. Lungs: The lungs are well inflated and clear. No pneumonia or pulmonary edema. Pleura: No pleural effusion or pneumothorax. Heart and mediastinum: The heart and the mediastinum are unremarkable. Bones and soft tissues: No acute bony abnormalities. IMPRESSION: 1. No acute cardiopulmonary abnormalities. Signed by: Dr. Aaron Crum M.D. on 01/26/2019 5:19 PM
[2019-01-26] MEDS ORDERED: ONDANSETRON HCL INJ 2MG/ML 2ML 2 MG/ML VIAL IV PRN (17:45)
--- OUTSIDE RECORDS SUMMARY | 2019-01-26 17:56 | XMS REPORT ---
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 Allergies, Adverse Reactions, Alerts This patient has no known allergies or adverse reactions. Medications This patient has no known medications. Results Test Description Test Time Test Comments Text Results Atomic Results Result Comments CHEST SINGLE (PORTABLE) 2019-01-26 17:18:00 [place] [id number] Patient Name: MARTÍN STALEY MR #: [id number] : 1960 Age/Sex: 58/F Req #: [id number] Adm Physician: Ordered by: DARIN ADAMS MD Report #: [id number] Location: ER Room/Bed: Procedure: [id number] DX/CHEST SINGLE (PORTABLE) Exam Date: 01/26/19 Exam Time: 1710 REPORT STATUS: Signed Examination: Single AP view of the chest. CO MPARISON: None. INDICATION: Vomiting, diarrhea DISCUSSION: Lines/tubes: None. Lungs: The lungs are well inflated and clear. No pneumonia or pulmonary edema. Pleura: No pleural effusion or pneumothorax. Heart and mediastinum: The heart and the mediastinum are unremarkable. Bones and soft tissues: No acute bony abnormalities. IMPRESSION: 1. No acute cardiopulmonary abnormalities. Signed by: Dr. Salvador Willis M.D. on 01/26/2019 5:19 PM Dictated By: SALVADOR WILLIS MD 18 Transcribed By: BLANCA on 01/26/191718 COPY TO: DARIN ADAMS MD CT ABDOMEN/PELVIS W 2019-01-26 16:21:00 [place] [id number] Patient Name: MARTÍN STALEY MR #: [id number] : 1960 Age/Sex: 58/F Req #: [id number] Adm Physician: Ordered by: JENNIFER GRIFFIN NP Report #: [id number] Location: ER Room/Bed: Procedure: [id number] CT/CT ABDOMEN/PELVIS W Exam Date: 01/26/19 Exam Time: 1412 REPORT STATUS: Signed EXAMINATION: CT of the abdomen and pelvis with contr ast. TECHNIQUE: Helical CT images of the abdomen and pelvis were performed from the lung bases to the lesser trochanters after the intravenous administration of 100 cc of Isovue 300 and the oral administration of Gastrografin. Coronal and sagittal reformatted images were obtained.Dose modulation, iterative reconstruction, and/or weight based adjustment of the mA/kV was utilized to reduce the radiation dose to as low as reasonably achievable. COMPARISON: None. CLINICAL HISTORY:Abdominal pain DISCUSSION: ABDOMEN/PELVIS: LOWER THORAX:Groundglass opacities right lower lobe. HEPATOBILIARY: No focal hepatic lesions. No intra-or extrahepatic biliary ductal dilation. Cholecystectomy. SPLEEN: No splenomegaly. PANCREAS: No focal masses or ductal dilatation. ADRENALS: No adrenal nodules. KIDNEYS/URETERS: No hydronephrosis, stones, or solid mass lesions. PELVIC ORGANS/BLADDER: The bladder is normal. PERITONEUM/RETROPERITONEUM: No free air or fluid. LYMPH NODES: No intra- abdominal, retroperitoneal, pelvic or inguinal lymphadenopathy. VESSELS: The celiac trunk,superior and inferior mesenteric and bilateral renal arteries are patent The portal, superior mesenteric and splenic veins are patent. GI TRACT: No distention or wall thickening. Appendix normal. BONES AND SOFT TISSUE: No bony destructive lesions. No soft tissue abnormalities. IMPRESSION: Right lower lobe mild pneumonia versus aspiration. No acute CT finding within the abdomen. Signed by: Dr. Salvador Willis M.D. on 01/26/2019 4:24 PM Dictated By: SALVADOR WILLIS MD 23 Transcribed By: BLANCA on 01/26/19 162 COPY TO: JENNIFER GRIFFIN NP CT BRAIN WO 2019-01-26 16:20:00 [place] [id number] Patient Name: MARTÍN STALEY MR #: [id number] : 1960 Age/Sex: 58/F Req #: [id number] Adm Physician: Ordered by: JENNIFER GRIFFIN NP Report #: [id number] Location: ER Room/Bed: Procedure: [id number] CT/CT BRAIN WO Exam Date: 01/26/19 Exam Time: 1407 REPORT STATUS: Signed EXAMINATION: Head CT HISTORY: Syncope, nausea and vomi ting COMPARISON: None. TECHNIQUE: Multidetector axial images were obtained without contrast from the foramen magnum to the vertex . The images were reconstructed using brain and bone algorithms. Thin section brain images were reformatted into coronal and sagittal planes. Image quality: Motion/streaking artifact limits the evaluation of the skull base and posterior cranial fossa. Dose modulation, iterative reconstruction, and/or weight based adjustment of the mA/kV was utilized to reduce the radiation dose to as low as reasonably achievable. FINDINGS: Parenchyma: 1. No abnormal densities. 2. No mass or hemorrhage. No CT evidence of acute territorial vascular insult. Extra-axial spaces:No abnormal density. No extra-axial fluid collections Brain volume: Normal for age. Ventricles: No hydrocephalus or displacement. Arteries: No density suggestive of thrombus. Dural sinuses: No abnormal density. Extra-axial spaces: No abnormal density. Foramen magnum: No mass, Chiari malformation, or basilar invagination. Sella: No obvious mass. Paranasal/mastoid sinuses: Imaged portions unremarkable. Skull/Scalp: No lytic or blastic lesions. No fractures. IMPRESSION: Suboptimal study due to patient's motion, grossly no acute intracranial abnormalities. Signed by: Dr. Isabel Victor M.D. on 01/26/2019 4:22 PM Dictated By: ISABEL VICTOR MD 1622 Transcribed By: BLANCA on 01/26/19 1622 COPY TO: JENNIFER GRIFFIN NP
--- OUTSIDE RECORDS SUMMARY | 2019-01-26 17:56 | XMS REPORT | Clinical Summary ---
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 Name Role Phone Murray Campbell PCP [...] Area Manufactur er 02/07/2018 [id number] / / [id number] Cashiers Mini Bio Suttak 2.4x8.5 Cashiers/Art Right: Ankle ARTHREX Ar-[id number] - [id number] hroscopy Implanted: Qty: 2 on 04/20/2016 by Mark Tavares MD 02/07/2018 [id number] / / [id number] Kt Ligmnt May Repr Intrl Brace Cashiers/Art Right: Ankle ARTHREX Ar-1688-Cp - [id number] hroscopy Implanted: Qty: 1 on 04/20/2016 by Mark Tavares MD 01/08/2021 [id number] / / [id number] Kt Cpr Viper Ar-8692ds - [id number] Cashiers/Art Right: Toe ARTHREX Implanted: Qty: 1 on 04/20/2016 by Mark Venegas MD AR-8930-13 / / Scr Quick Fix 2x13mm Ar-8930-13 - Fracture/F Right: Toe ARTHREX [id number] ixation Implanted: Qty: 2 on 04/20/2016 by Mark Tavares MD [id number] / / 0.62 K Wire Right: Toe ARTHREX Implanted: Qty: 1 on 04/20/2016 by Mark Tavares MD Results Not on fileafter 01/25/2018 Insurance Payer Benefit Subscriber ID Type Phone Address Plan / Group AETNA - [employer]GD CARE AETNA HMO xxxxxxxxxx HMO/POS POS QPOS Advance Directives For more information, please contact: [facility] [address] [place] [address] Date Inactivated Comments Code Status Date Activated 04/20/2016 2:19 PM Full Code 04/20/2016 6:42 AM This code status was determined by: Patient
[2019-01-26] MEDS ORDERED: ACETAMINOPHEN 325 MG TAB PO NR (18:00)
[2019-01-26] MEDS: SODIUM CHLORIDE 0.9% 1000ML 1,000 ML IV SCH (19:26)
--- NOTE | 2019-01-26 19:27 | NUR ---
report to eleazar
[2019-01-26] MEDS: ACETAMINOPHEN 325 MG TAB PO PRN (19:30)
[2019-01-26 20:37] LABS: CREATINE KINASE MB 0.9 ng/mL (0-5.0)
[2019-01-26 20:43] VITALS: BP 141/71
--- NOTE | 2019-01-26 20:43 | NUR ---
patient is a new admit that arrived via stretcher. patient is awake and talking. patient has been helped into the bed. bed is in lowest position and call light is within reach. will continue to monitor patient.
[2019-01-26 20:45] VITALS: BP 141/71
--- NOTE | 2019-01-26 21:00 | NUR ---
patient is complaining of pain in the head and states tylenol is not effective. ON AIR DIRECTOR notified, received new orders for motrin 400mg one time dose for pain. will continue to monitor patient.
[2019-01-26 21:02] VITALS: BP 141/71
[2019-01-26] MEDS ORDERED: IBUPROFEN 400 MG TAB PO NR (21:45)
[2019-01-26] MEDS: CEFTRIAXONE SOD 1 GM/NS 50 ML 50 ML IV SCH (22:12)
[2019-01-27] VITALS (8 sets, daily range): BP systolic 91–157; BP diastolic 52–80
[2019-01-27] MEDS: SODIUM CHLORIDE 0.9% 1000ML 1,000 ML IV SCH ×3 (03:42→20:02)
--- NOTE | 2019-01-27 06:04 | Diagnostic Imaging Report ---
EXAMINATION: CHEST SINGLE (PORTABLE) COMPARISON: Chest x-ray 01/26/2019 INDICATION: Pneumonia ^PNEUMONIA ^Y DISCUSSION: Frontal view of the chest obtained at 0514 hours. HEART AND MEDIASTINUM: The cardiomediastinal silhouette is unremarkable. LINES: None. LUNGS: The lungs are well inflated and clear. No pneumonia or pulmonary edema. PLEURA: No pleural effusion or pneumothorax. BONES AND SOFT TISSUES: No focal osseous lesion. The soft tissues are normal. IMPRESSION: No acute cardiopulmonary disease. No new cardiopulmonary findings. Signed by: Dr. Jillian Martin MD on 01/27/2019 6:01 AM
[2019-01-27 06:54] LABS: CREATINE KINASE MB 1.1 ng/mL (0-5.0)
--- NOTE | 2019-01-27 06:54 | NUR ---
report given to day nurse. patient is resting comfortably in bed. bed is in lowest position and call carrera is within reach.
[2019-01-27] MEDS ORDERED: AZITHROMYCIN 500MG/SOD CHL 0.9% 250ML BAG IV SCH (09:00)
[2019-01-27] MEDS ORDERED: CEFTRIAXONE SOD 1 GRAM/0.9% SOD CHL 50ML BAG IV SCH (09:00)
[2019-01-27] MEDS: AZITHROMYCIN 500MG/NS 250 ML 250 ML IV SCH (09:30)
[2019-01-27] MEDS ORDERED: ONDANSETRON HCL 4 MG ORAL DISINTEGRATING TAB PO PRN (09:30)
[2019-01-27] MEDS: CEFTRIAXONE SOD 1 GM/NS 50 ML 50 ML IV SCH ×2 (09:30→20:01)
[2019-01-27 09:47] LABS: BASOPHILS % 0.2 % (0.0-1.0); EOSINOPHILS # (AUTO) 0.1 (0.0-0.4); EOSINOPHILS % 0.5 % (0.0-6.0); HEMATOCRIT 35.6 % (34.2-44.1); HEMOGLOBIN 11.5 g/dL (12.0-16.0); LYMPHOCYTES # (AUTO) 1.4 (1.0-3.2); LYMPHOCYTES % 12.2 % (18.0-39.1); MEAN CORPUSCULAR HEMOGLOBIN 30.3 pg (28-32); MEAN CORPUSCULAR HGB CONC 32.3 g/dL (31-35); MEAN CORPUSCULAR VOLUME 93.9 fL (81-99); MONOCYTES # (AUTO) 0.9 (0.2-0.8); MONOCYTES % 7.9 % (4.4-11.3); NEUTROPHILS # (AUTO) 8.8 (2.1-6.9); NEUTROPHILS % 78.8 % (38.7-80.0); PLATELET COUNT 222 x10e3/uL (140-360); RED BLOOD COUNT 3.79 x10e6/uL (3.6-5.1)
[2019-01-27 09:57] LABS: ANION GAP 10.7 mmol/L (8-16); BLOOD UREA NITROGEN 7 mg/dL (7-26); BUN/CREATININE RATIO 10 (6-25); CALCIUM 8.4 mg/dL (8.4-10.2); CARBON DIOXIDE 22 mmol/L (22-29); CHLORIDE 114 mmol/L (98-107); EST GLOMERULAR FILTRATION RATE > 60 ML/MIN (60-); GLUCOSE 87 mg/dL (74-118); POTASSIUM 3.7 mmol/L (3.5-5.1); SODIUM 143 mmol/L (136-145)
[2019-01-27] MEDS ORDERED: HYDRALAZINE HCL 20 MG/ML VIAL IV PRN (11:00)
[2019-01-27] MEDS ORDERED: CHOLESTYRAMINE 4 GM PACKET PO PRN (11:00)
[2019-01-27] MEDS: ALBUTEROL/IPRATROPIUM 3 ML NEB NEB SCH ×2 (13:00→19:00)
[2019-01-27 14:03] LABS: CREATINE KINASE 123 IU/L (29-168)
--- NOTE | 2019-01-27 15:05 | Diagnostic Imaging Report ---
Exam: Brain MRI without IV contrast History: Syncope Comparison studies: Head CT 01/26/2019 Technique: Sagittal and axial T2 FS, axial DWI, axial T2*GRE, axial T1 FLAIR and axial coronal T2 FLAIR. Intravenous contrast: None Findings: Scalp: Normal in signal. No masses. Bone marrow: Normal in signal intensity. Brain sulci: Appropriate for age. Ventricles: Normal in size. No hydrocephalus. Extra axial spaces: No mass, no fluid collection. Parenchyma: No abnormal signal intensities. No masses, hemorrhage, acute or chronic vascular insults. Suprasellar region: No abnormalities. Craniocervical junction: Patent foramen magnum. No Chiari malformation. Vessels: Normal flow-voids in the arteries and sinuses. Incidental finds: Minimal reactive T2 hyperintense changes in the right mastoids. IMPRESSION: No intracranial abnormalities. Signed by: Dr. Radames Polanco M.D. on 01/27/2019 3:02 PM
[2019-01-27] MEDS: GUAIFENESIN 600MG/DEXTROMETHORPHAN 30MG TABSR PO SCH (16:02)
[2019-01-27] MEDS: FAMOTIDINE 20 MG TAB PO SCH (16:02)
[2019-01-27] MEDS: ACETAMINOPHEN 325 MG TAB PO PRN (16:03)
[2019-01-27 16:23] LABS: BILIRUBIN,URINE NEGATIVE (NEGATIVE); COLOR,URINE COLORLESS (YELLOW); KETONES,URINE 1+ (NEGATIVE); LEUKOCYTE ESTERASE ,URINE NEGATIVE (NEGATIVE); NITRITE,URINE NEGATIVE (NEGATIVE); PROTEIN,URINE DIPSTICK NEGATIVE (NEGATIVE); URINE UROBILINOGEN 0.2 mg/dL (0.2 - 1)
[2019-01-27 16:24] LABS: CLARITY,URINE CLEAR (CLEAR)
[2019-01-27 16:26] LABS: AMORPHOUS SEDIMENT,URINE FEW (FEW); BACTERIA,URINE MODERATE /HPF; EPITHELIAL CELLS,URINE FEW /LPF; MUCUS,URINE FEW (RARE); RBC,URINE 0-5 /HPF (0-5); WBC,URINE (MAN) 0-5 /HPF (0-5)
[2019-01-27] MEDS: METOCLOPRAMIDE HCL 10 MG TAB PO SCH ×2 (16:30→20:01)
--- NOTE | 2019-01-27 23:23 | Consultation ---
DATE OF CONSULTATION: 01/27/2019 Neurology consult note. HISTORY OF PRESENT ILLNESS: Ms. Dumont is a 58-year-old right-hand dominant woman without significant past medical history, admitted to [facility] on January 26, 2019 following a syncopal event. At approximately 0430 on the day of admission, the patient awoke with nausea, vomiting, and diarrhea. After a few hours with the above described symptoms, Ms. Dumont developed dizziness, which is further described as a lightheaded sensation as well as diaphoresis. During this time, the patient decreased oral intake as well. In the late morning/early afternoon of January 26, 2019, the patient was sitting on the toilet when she passed out. When she came to, the patient was slumped over with her head leaning on the toilet paper sheth. The duration of unconsciousness is unknown. Ms. Dumont does not report tongue biting. As she was sitting on the toilet, it is unknown whether or not the patient experienced bladder or bowel incontinence. Ms. Dumont does not report a headache, arthralgias, myalgias, and sore or myalgias upon regaining consciousness. The patient has not noted bruises or abrasions anywhere on her body after regaining consciousness. When she did regain consciousness, Ms. Dumont was oriented to person, place, time, and situation. Ms. Dumont does report a known history of vasovagal syncope. On numerous occasions, she has fainted either when receiving an injection or when having blood drawn. The patient does not report a personal history of febrile seizures. There is no known family history of seizures. The patient does not report prior head trauma or meningitis/encephalitis. REVIEW OF SYSTEMS: Nausea, vomiting, diarrhea, decreased oral intake, diaphoresis, dizziness which is further described as lightheadedness. Otherwise a 12-point review of systems is negative. PAST MEDICAL HISTORY: Night sweats from menopause. PAST SURGICAL HISTORY: section x2, cholecystectomy, right ankle surgery, bilateral carpal tunnel release, and left wrist tendon release. PAST HOSPITALIZATIONS: Surgeries/procedures as listed. FAMILY MEDICAL HISTORY: The patient's paternal and maternal grandparents are . Their medical histories are unknown. The patient's father is from Sally's disease. He was diagnosed in his mid 40s and 10 to 15 years later. The patient's mother is alive, but has arthritis. Ms. Dumont has one brother, who is from complications of alcoholic cirrhosis. She has a sister, who is alive and healthy. Ms. Dumont has two daughters, both of whom are alive and healthy. SOCIAL HISTORY: Ms. Dumont is . 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 The patient does not report current or prior tobacco or recreational drug use. Ms. Dumont endorses occasional alcohol use. HOME MEDICATIONS: Fluoxetine 20 mg by mouth daily. HOSPITAL MEDICATIONS: Reviewed. Please see the list of hospital medications available in the electronic medical record. ALLERGIES: NO KNOWN DRUG ALLERGIES. NO KNOWN FOOD ALLERGIES. NO KNOWN ALLERGIES TO LATEX. NO KNOWN ALLERGIES TO IODINE OR OTHER CONTRAST MATERIALS. PHYSICAL EXAMINATION: VITAL SIGNS: Height 59 inches, weight 130 pounds, BMI 26.3 kg/m2, blood pressure 157/80 mmHg, pulse 75 beats per minute, respiratory rate 20 breaths per minute, and oxygen saturation 98% on room air. GENERAL: The patient is awake and alert, does not appear distressed. HEENT: Normocephalic, atraumatic. Pupils are equal, round, and reactive to light. Moist mucous membranes. NECK: Supple. No appreciable thyromegaly. No appreciable carotid bruits. CARDIOVASCULAR: S1, S2, regular rate and rhythm. No murmurs, rubs, or gallops. RESPIRATORY: Clear to auscultation bilaterally. No wheezes, rhonchi, or rales. EXTREMITIES: The skin is warm and dry. No clubbing, cyanosis, or edema. The posterior tibial and dorsalis pedis pulses are 2+ and symmetric. SKIN: No rashes or lesions. NEUROLOGIC: Memory/Attention: The patient is awake and alert, oriented to person, place, time, and situation. Cranial Nerves: Cranial nerve I - not tested. Cranial nerve II, III, IV, and - pupils are equal and round, react briskly to light (from 4 mm to 2 mm). Extraocular movements intact. No nystagmus. Cranial nerve V - sensation to light touch and pinprick is intact in the bilateral V1 through V3 distributions. Strength in the temporalis and masseter muscles is within normal limits. Cranial nerve VII - the face is symmetric as are all facial movements. Strength is within normal limits. Cranial nerve VIII - hearing is intact to finger rub bilaterally. Cranial IX, X - the soft palate elevates equally and symmetrically. Cranial nerve XI - normal strength of the bilateral sternocleidomastoid and trapezius muscles. Cranial nerve XII - the tongue protrudes midline and moves symmetrically from vcxu-jd-lyre. Strength: Bulk is normal. Strength is 5/5 in the bilateral deltoids, biceps, triceps, wrist flexors and extensors, finger flexors and extensors, intrinsic hand muscles, hip flexors, knee flexors and extensors, ankle dorsiflexion and plantar flexion, and intrinsic foot muscles. Tone is normal. DTRs: Deep tendon reflexes are 2+ and symmetric at the triceps, biceps, brachioradialis, patellas, and Achilles. Plantar responses are flexor bilaterally. Sensation: Sensation is intact to light touch and pinprick in both arms and both legs. Cerebellar: Xctonm-fdqt-wuxypk and heel-luis movements are intact without dysmetria or other impairment. Gait: Deferred. Speech: Spontaneous speech is normal without appreciable dysarthria or aphasia. Repetition is intact. Involuntary movements: None. Pronator Drift: None. LABORATORY DATA: The most recent basic metabolic panel is significant for a chloride of 114. A liver function panel collected on January 26, 2019 is unremarkable. Cardiac enzymes are negative x4. Lactic acid 29.9, 14.3. The most recent CBC with differential and platelets reveals an elevated white blood cell count of 11.09 with a left shift with 78.8% neutrophils, 12.2% lymphocytes, 7.9% monocytes, 0.5% eosinophils, and 0.2% basophils. A coagulation profile is within normal limits. The most recent urinalysis reveals clear urine with a specific gravity of 1.005, 1+ ketones, moderate urine bacteria, and few urine mucus. Clostridium difficile toxin A and B negative. Influenza types A and B antigen negative. A urine culture collected on January 26, 2019 grew mixed maribel. Blood cultures collected on January 26, 2019 revealed no growth after 24 hours. A repeat urine culture is pending. Ova and parasite screen of the stool is pending. DIAGNOSTIC STUDIES: Electrocardiogram of 01/26/2019: Normal sinus rhythm at [address] of the brain without contrast 01/26/2019: On my review, there is no evidence of recent or remote large territorial ischemia, hemorrhage, mass, or mass effect. Cerebral volume appears appropriate for age. There are no findings suggestive of chronic small vessel ischemic disease. Of note, evaluation of these images is limited by motion artifact. CT of the abdomen and pelvis 01/26/2019: Right lower lobe mild pneumonia versus aspiration. No acute CT finding within the abdomen. Chest x-ray 01/26/2019: No acute cardiopulmonary abnormalities. Chest x-ray 01/27/2019: No acute cardiopulmonary disease. No new cardiopulmonary findings. Bilateral carotid artery ultrasound with Doppler 01/27/2019: There is atherosclerosis without hemodynamically significant stenosis at the bilateral internal carotid arteries. Flow is antegrade in the bilateral vertebral arteries. Elevated velocities are noted in the bilateral vertebral arteries. MRI of the brain without contrast 01/27/2019: On my review, there is no evidence of recent or remote large territorial ischemia, hemorrhage, mass, or mass effect. Cerebral volumes are appropriate for age. There are no findings suggestive of chronic small vessel ischemic disease. ASSESSMENT AND PLAN: Ms. Dumont is a 58-year-old right-hand dominant woman with no significant past medical history, admitted to [facility] on January 26, 2019, status post a syncopal event secondary to volume depletion. Her neurological examination is nonfocal. The patient's laboratory data and other diagnostic studies have been reviewed and are documented above. Volume resuscitation with intravenous fluids should be continued. Continue treatment with intravenous antibiotics pending the results of the various cultures. Continue to treat nausea and vomiting with Reglan, Pepcid, and Zofran as needed. Encourage oral intake. Thank you for this consultation. There are no recommendations from the Neurology Service at this time. Please call again with any questions or concerns. TIME SPENT: 50 minutes. Frannie Cox MD CP/LOIS /[id number] MELBA
[2019-01-28] VITALS (7 sets, daily range): BP systolic 139–175; BP diastolic 71–93
[2019-01-28] MEDS: ALBUTEROL/IPRATROPIUM 3 ML NEB NEB SCH ×4 (01:00→19:00)
[2019-01-28 04:52] LABS: BASOPHILS % 0.3 % (0.0-1.0); EOSINOPHILS # (AUTO) 0.1 (0.0-0.4); EOSINOPHILS % 1.9 % (0.0-6.0); HEMATOCRIT 32.6 % (34.2-44.1); HEMOGLOBIN 10.6 g/dL (12.0-16.0); LYMPHOCYTES # (AUTO) 1.5 (1.0-3.2); LYMPHOCYTES % 21.7 % (18.0-39.1); MEAN CORPUSCULAR HEMOGLOBIN 30.5 pg (28-32); MEAN CORPUSCULAR HGB CONC 32.5 g/dL (31-35); MEAN CORPUSCULAR VOLUME 93.7 fL (81-99); MONOCYTES # (AUTO) 0.7 (0.2-0.8); MONOCYTES % 9.4 % (4.4-11.3); NEUTROPHILS # (AUTO) 4.6 (2.1-6.9); NEUTROPHILS % 66.6 % (38.7-80.0); PLATELET COUNT 200 x10e3/uL (140-360); RED BLOOD COUNT 3.48 x10e6/uL (3.6-5.1); RED CELL DISTRIBUTION WIDTH 13.9 % (11.7-14.4)
[2019-01-28 05:16] LABS: BLOOD UREA NITROGEN < 5 mg/dL (7-26); CALCIUM 7.4 mg/dL (8.4-10.2); CARBON DIOXIDE 19 mmol/L (22-29); CHLORIDE 117 mmol/L (98-107); CREATININE, SERUM 0.59 mg/dL (0.57-1.11); EST GLOMERULAR FILTRATION RATE > 60 ML/MIN (60-); GLUCOSE 69 mg/dL (74-118); MAGNESIUM 1.6 MG/DL (1.3-2.1); SODIUM 143 mmol/L (136-145)
[2019-01-28 05:25] LABS: BUN/CREATININE RATIO 8 (6-25)
[2019-01-28 05:57] LABS: B-TYPE NATRIURETIC PEPTIDE2 136.4 pg/mL (0-100)
[2019-01-28] MEDS ORDERED: CHOLESTYRAMINE 4 GM PACKET PO SCH ×3 (06:00→09:00)
[2019-01-28 06:07] LABS: FREE T4 (FREE THYROXINE) 0.93 ng/dL (0.9-1.8); THYROID STIMULATING HORMONE 3.222 uIU/mL (0.350-4.940)
[2019-01-28] MEDS ORDERED: POTASSIUM CHLORIDE 20 MEQ TAB CR PO STA (06:34)
[2019-01-28] MEDS ORDERED: PEPCID20 MG PO (06:51)
[2019-01-28] MEDS ORDERED: REGLAN10 MG PO (06:51)
[2019-01-28] MEDS ORDERED: CEFTIN PO (06:51)
[2019-01-28] MEDS ORDERED: MUCINEX DM ER1 EACH PO (06:51)
[2019-01-28] MEDS ORDERED: ZITHROMAX500 MG PO (06:51)
--- NOTE | 2019-01-28 07:00 | NUR ---
RCD PT AT BED PT IS ALERT AND ORIENTED PT RESTING ON BED NO SIGNS OF ANY DISTRESS NOTED BED LOW AND LOCKED CALL LIGHT IN REACH
[2019-01-28] MEDS: FAMOTIDINE 20 MG TAB PO SCH ×2 (07:30→16:23)
[2019-01-28] MEDS: METOCLOPRAMIDE HCL 10 MG TAB PO SCH ×4 (07:30→20:46)
[2019-01-28] MEDS ORDERED: PANTOPRAZOLE SOD 40 MG TABEC PO SCH (07:30)
[2019-01-28] MEDS: ACETAMINOPHEN 325 MG TAB PO PRN (08:51)
[2019-01-28] MEDS: CEFTRIAXONE SOD 1 GM/NS 50 ML 50 ML IV SCH ×2 (08:51→21:00)
[2019-01-28] MEDS: DULOXETINE HCL 20 MG DELAYED RELEASE PO SCH (08:51)
[2019-01-28] MEDS: GUAIFENESIN 600MG/DEXTROMETHORPHAN 30MG TABSR PO SCH ×2 (08:51→16:25)
[2019-01-28] MEDS: OYST-CAL-D 500MG TABLET PO SCH ×2 (08:51→16:26)
[2019-01-28] MEDS: AZITHROMYCIN 500MG/NS 250 ML 250 ML IV SCH (08:51)
[2019-01-28] MEDS: CHOLESTYRAMINE 4 GM PACKET PO SCH ×2 (09:41→16:26)
[2019-01-28] MEDS: SODIUM CHLORIDE 0.9% 1000ML 1,000 ML IV SCH ×3 (09:42→20:47)
--- NOTE | 2019-01-28 18:54 | NUR ---
PT RESTING ON BED BED SIDE REPORT GIVEN TO ON COMING NURSE
[2019-01-29] VITALS: BP 141/81
[2019-01-29] MEDS: ALBUTEROL/IPRATROPIUM 3 ML NEB NEB SCH (01:00)
[2019-01-29 03:08] LABS: BASOPHILS % 0.3 % (0.0-1.0); EOSINOPHILS # (AUTO) 0.2 (0.0-0.4); EOSINOPHILS % 2.6 % (0.0-6.0); HEMOGLOBIN 10.9 g/dL (12.0-16.0); LYMPHOCYTES # (AUTO) 1.7 (1.0-3.2); LYMPHOCYTES % 23.8 % (18.0-39.1); MEAN CORPUSCULAR HEMOGLOBIN 29.8 pg (28-32); MEAN CORPUSCULAR VOLUME 90.2 fL (81-99); MONOCYTES # (AUTO) 0.6 (0.2-0.8); NEUTROPHILS # (AUTO) 4.5 (2.1-6.9); PLATELET COUNT 227 x10e3/uL (140-360); RED BLOOD COUNT 3.66 x10e6/uL (3.6-5.1); RED CELL DISTRIBUTION WIDTH 13.5 % (11.7-14.4)
[2019-01-29 04:00] VITALS: BP 138/79
[2019-01-29 04:03] LABS: ANION GAP 12.6 mmol/L (8-16); BLOOD UREA NITROGEN < 5 mg/dL (7-26); CALCIUM 8.9 mg/dL (8.4-10.2); CARBON DIOXIDE 23 mmol/L (22-29); CHLORIDE 109 mmol/L (98-107); CREATININE, SERUM 0.63 mg/dL (0.57-1.11); EST GLOMERULAR FILTRATION RATE > 60 ML/MIN (60-); GLUCOSE 89 mg/dL (74-118); POTASSIUM 3.6 mmol/L (3.5-5.1); SODIUM 141 mmol/L (136-145)
[2019-01-29 04:14] LABS: BUN/CREATININE RATIO 8 (6-25)
--- NOTE | 2019-01-29 07:00 | NUR ---
RCD PT AT BED PT IS ALERT AND ORIENTED PT RESTING ON BED NO SIGNS OF ANY DISTRESS NOTED IV PATENT BED LOW AND LOCKED CALL LIGHT IN REACH
[2019-01-29 07:24] VITALS: BP 142/81
[2019-01-29] MEDS ORDERED: ZITHROMAX500 MG PO (07:26)
[2019-01-29] MEDS ORDERED: CEFTIN PO (07:26)
[2019-01-29] MEDS: METOCLOPRAMIDE HCL 10 MG TAB PO SCH (07:30)
[2019-01-29] MEDS: FAMOTIDINE 20 MG TAB PO SCH (07:30)
[2019-01-29 07:34] LABS: FERRITIN 86.48 ng/mL (4.63-204.00)
[2019-01-29 07:56] LABS: FOLATE 14.9 ng/mL (7.0-15.4)
[2019-01-29 08:00] VITALS: BP 142/81
[2019-01-29] MEDS: DULOXETINE HCL 20 MG DELAYED RELEASE PO SCH (08:33)
[2019-01-29] MEDS: CEFTRIAXONE SOD 1 GM/NS 50 ML 50 ML IV SCH (08:33)
[2019-01-29] MEDS: AZITHROMYCIN 500MG/NS 250 ML 250 ML IV SCH (08:33)
[2019-01-29] MEDS: GUAIFENESIN 600MG/DEXTROMETHORPHAN 30MG TABSR PO SCH (08:34)
[2019-01-29] MEDS: OYST-CAL-D 500MG TABLET PO SCH (08:34)
[2019-01-29] MEDS: CHOLESTYRAMINE 4 GM PACKET PO SCH (08:34)
--- NOTE | 2019-01-29 10:03 | NUR ---
PT WENT HOME IN SAFE CONDITION WITH HER
--- NOTE | 2019-01-29 20:31 | Discharge Summary ---
ADMISSION DIAGNOSES: 1. Syncope. 2. Community-acquired pneumonia. 3. Nausea, vomiting, diarrhea. 4. Urinary tract infection, present on admission. DISCHARGE DIAGNOSES: 1. Syncope. 2. Community-acquired pneumonia. 3. Nausea, vomiting, diarrhea. 4. Urinary tract infection, present on admission. 5. Rule out cerebrovascular accident/transient ischemic attack. 6. Rule out urinary tract infection. 7. Rule out Clostridium difficile plus hypokalemia. 8. Rule out flu. HISTORY OF PRESENT ILLNESS: The patient has a history of syncopal episodes after giving blood. PAST SURGICAL HISTORY: Cholecystectomy, , right foot surgery, bilateral carpal tunnel release, and left hand tendon release. FAMILY HISTORY: The patient's father had Lunenburg's disease. SOCIAL HISTORY: The patient admits to occasional alcohol use. HOSPITAL COURSE: A 58-year-old female complains of nausea, vomiting, diarrhea, and syncope that began yesterday. The nausea and vomiting improved with Zofran and worsened with sitting up. She had about 10 to 12 watery bowel movements yesterday and she was on the toilet when she apparently passed out and woke up on the floor. She is unaware of how long she was on the floor because no one else at home. The patient denies fever and recent antibiotic use. 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 On admission, the patient was started on Zithromax, Rocephin, Mucinex, nebs. CT of the brain showed no acute abnormality. CT of the abdomen showed right lower lobe pneumonia. No acute findings within the abdomen. Bilateral carotid Doppler showed carotid disease without significant stenosis. Chest x-ray was negative. MRI of the brain was also negative. Neurology was consulted, who cleared the patient for discharge. Urine culture came back contaminated at the first time and then negative on the 2nd culture. Blood cultures were negative. Stool cultures were sent, but not received by time of discharge. Clostridium difficile was negative. Flu was negative. GI was consulted, who recommended to keep the patient until the diarrhea resolved and she will follow up. The patient and family understand discharge instructions and agree to plan. DISCHARGE MEDICATIONS: The patient will discharge with: 1. Zithromax. 2. Ceftin. 3. Pepcid. 4. Mucinex. 5. Reglan. 6. She will continue her home medicine of Cymbalta for hot flashes with menopause. Vital signs stable. The patient afebrile. She will follow up with primary care in 1 to [address] Mederos as discussed. Dictated by Suzette Yeh, JOSEP MD ALFONSO Mcgovern/MODL /[id number]
== END 2019-01-29 10:03 | disposition home or self-care (01) ==
LOC: ER 10:46 → ERHOLD 17:52 → IMCU 20:43 → MED/SURG2 01-28 11:29
PROVIDERS: ADMIT Internal Medicine; ATTEND Internal Medicine
DX: J18.9 Pneumonia, unspecified organism (principal); N39.0 Urinary tract infection, site not specified
CPT/HCPCS: 36415 ×4; 70450; 70551; 71045 ×2; 74177; 80048 ×3; 80053; 81001 ×2; 82150; 82550 ×2; 82553 ×2; 82607; 82728; 82746; 83036; 83540; 83605; 83690; 83735 ×3; 83880; 84439; 84443; 84466; 84484 ×2; 85025 ×4; 85045; 85610; 85730; 87040; 87045; 87086 ×2; 87177; 87400; 87493; 93005; 93880; 97139; 99284; G0378 ×4; J0456 ×3; J0696 ×4; J0744; J2405; J7030 ×3; J8597 ×3; Q0162; Q9967